=== PATIENT | female | born 1980 | race Caucasian/White ===

== ENCOUNTER 2020-07-19 | Outpatient (REF) | payer OTHER, SELFPAY | END 2020-07-19 00:01 | disposition home or self-care (01) | LOC: CF | PROVIDERS: Visit Provider Physician Assistant | DX: R10.9 Unspecified abdominal pain (principal) | CPT/HCPCS: 87338 ==

== ENCOUNTER 2020-07-30 12:49 | Outpatient (REF) | payer OTHER, SELFPAY ==
--- NOTE | 2020-07-30 12:53 | XR_ITS ---
EXAMINATION: XR CHEST CLINICAL INFORMATION: Chest pain COMPARISON: Chest radiograph 06/28/2020 TECHNIQUE: 2 views of the chest were obtained. FINDINGS: The lungs are clear. There is no pneumothorax, pleural reaction, airspace consolidation, or groundglass opacity. The costophrenic sulci are clear. The heart is normal in size. The hilar and mediastinal contours and bony structures are unremarkable. IMPRESSION: Lungs clear.
== END 2020-07-30 12:50 | disposition home or self-care (01) ==
LOC: HO.HMGCX 12:49
PROVIDERS: Visit Provider Hospitalist
DX: R07.89 Other chest pain (principal)
CPT/HCPCS: 71046

== ENCOUNTER 2020-08-13 11:22 | Outpatient (REF) | payer OTHER, SELFPAY ==
[2020-08-14 14:01] LABS: H Pylori Breath Test NOT DETECTED (NOT DETECTED)
== END 2020-08-13 11:23 | disposition home or self-care (01) ==
LOC: HO.LNP 11:22
PROVIDERS: PCP Internal Medicine; Visit Provider Physician Assistant
DX: A04.8 Other specified bacterial intestinal infections (principal)
CPT/HCPCS: 83013

== ENCOUNTER → 2020-11-05 12:01 | Outpatient (BNVA) | payer OTHER, SELFPAY | PROVIDERS: PCP Internal Medicine; Visit Provider Physician Assistant | DX: K21.9 Gastro-esophageal reflux disease without esophagitis (principal) | CPT/HCPCS: 99212 ==

== ENCOUNTER 2020-11-20 06:41 | Day surgery (SDC) | payer OTHER, SELFPAY ==
[2020-11-14 11:15] VITALS: BMI 27.5
--- NOTE | 2020-11-19 08:39 | HO.ANESPROP2 ---
Documented by User: Nettie Hoyt 11/19/20 08:41 HPI - Anesthesia Eval Consult details Narrative: 40yo F for Upper Endoscopy [facility] Active Problems Active Problems: All Active Problems (Updated 11/05/20 @ 13:28 by Lina Root PA-C) Chest wall pain (Acute) Cervical radiculopathy (Acute) H. pylori infection (Acute) Acid reflux (Acute) Past Medical History Medical History Acid reflux Family History Family History Father Digestive disorder Mother No problems noted. Surgical History Surgical History No history of previous surgery Social History Social History Household Members: Spouse Alcohol intake: never Smoking Status: Never smoker Use of substances other than those prescribed or required for medical reasons: No Advance Directives: No Advance Directives Information Provided: No Advance Directives on File: No Current occupational status: other Meds Allergies Allergy/AdvReac Type Severity Reaction Status Date / Time No Known Allergies Allergy Verified 07/30/20 12:38 Home Medications Medication Instructions Recorded Confirmed Type famotidine 20 mg tablet 20 mg PO BID 07/30/20 07/30/20 History lactulose 10 gram/15 mL oral ml PO 07/30/20 07/30/20 History solution Exam Exam Date and Time: November 19, 2020 0839 Height,Weight and Vital Signs: Height 5 ft 5 in Weight 75 kg Assessment and Plan Assessment Anesthesia Assessment: Chart Reviewed Documented by User: Dior Zamora 11/20/20 07:20 [facility] Past Medical History Medical History Acid reflux Family History Family History Father Digestive disorder Mother No problems noted. Surgical History Surgical History No history of previous surgery Social History Social History Household Members: Spouse Alcohol intake: never Smoking Status: Never smoker Use of substances other than those prescribed or required for medical reasons: No Advance Directives: No Advance Directives Information Provided: No Advance Directives on File: No Current occupational status: other Meds Allergies Allergy/AdvReac Type Severity Reaction Status Date / Time No Known Allergies Allergy Verified 07/30/20 12:38 Home Medications Medication Instructions Recorded Confirmed Type famotidine 20 mg tablet 20 mg PO BID 07/30/20 07/30/20 History lactulose 10 gram/15 mL oral ml PO 07/30/20 07/30/20 History solution Exam Airway Mallampati Class: II TM Dist: >3cm Neck ROM: Full
--- NOTE | 2020-11-20 | ECG_ITS ---
Test Reason : CP Blood Pressure : / mmHG Vent. Rate : 071 BPM Atrial Rate : 071 BPM P-R Int : 126 ms QRS Dur : 090 ms QT Int : 402 ms P-R-T Axes : 063 054 031 degrees QTc Int : 436 ms Normal sinus rhythm Normal ECG No previous ECGs available Referred By: Melo Hays Electronically Signed By:LUCIANA THORNTON
[2020-11-20 06:48] VITALS: BP 124/67; PULSE 78; RESP 20; TEMP 36.1; O2SAT 98
[2020-11-20 07:12] LABS: UPreg QC Valid YES; Urine Pregnancy NEGATIVE (NEGATIVE)
[2020-11-20] MEDS: Lactated Ringers 1,000 ML 100 ML IVCONT (07:14)
--- NOTE | 2020-11-20 07:15 | PC.NURSE ---
DR LOUIS AND DR HANCOCK AWARE PT HAVING INTERNITTENT C/P SINCE 8PM DENIES SOB LS CLEAR PWD STS RADIATES DOWN LEFT ARM WITH INTERMITTENT NUMBNESS EKG ORDERED
--- NOTE | 2020-11-20 07:23 | MHC.SHP ---
Pre-Procedural Eval Section A The patient is an INPATIENT: No Changes since office visit: Yes Patient answered all questions; No Cold of Flu in the past 2 weeks, No New Medical Problems and No Changes in Medication The History & Physical has been completed within 30 days and I have reviewed it.: Yes Section B Chief Complaint: reflux disease Allergies: Allergies Allergy/AdvReac Type Severity Reaction Status Date / Time No Known Allergies Allergy Verified 07/30/20 12:38 Review of Systems Sugical H&P ROS: Negative: Constitution, Cardiovascular and Respiratory and Yes, Specify: Gastrointestinal (heartburn, chest pain) Exam Surgical H&P Exam: Normal: Heart, Normal: Lungs and Normal: Extremities and Significant Findings: Abdomen (mild epigastric tenderness) Plan Diagnosis/Plan: Unchanged I have reviewed the history and physical and performed a pertinent physical examination on my patient. No changes have occurred unless specified.
--- NOTE | 2020-11-20 07:23 | W.PM.OPN ---
Operative Note Operative Note Date of Service: 11/20/20 Narrative: Pre-op diagnosis: GERD, chest and epigastric pain, intermittent dysphagia Post-op diagnosis: other (GERD, hiatal hernia, gastritis, retained food in the stomach) Procedure: FLEXIBLE TRANSORAL UPPER GASTROINTESTINAL ENDOSCOPY WITH BIOPSIES Consent: Indications for the procedure and potential complications of bleeding, perforation, reaction to medications and missed diagnosis were discussed with the patient and informed consent was obtained. Instrument: Olympus GIF H 190 mid size upper endoscope Monitoring: Vital signs and clinical assessment, continuous EKG monitoring, Pulse oximetry, Carbon Dioxide monitoring and blood pressure monitoring were done throughout the procedure. Procedure: The patient was placed in the left lateral decubitis position and pre-procedure medications were administered and a bite block was placed. The endoscope was inserted into the mouth and advanced under direct vision to the third part of duodenum. A careful inspection was made as the upper endoscope was withdrawn including a retroflexed examination of the proximal stomach; Findings and interventions are described below. Findings: Larynx: Normal Esophagus: Tortuous esophagus with increased tertiary contractions without stricture or ring - biopsies were obtained from proximal esophagus to check for EOE. GE junction at 32 cms, small hiatla hernia 32 to 35 cms. No esophagitis or Cintron Stomach: A large amount of retained food in fundus and body of the stomach. Mild gastric erythema. Biopsies were obtained. Grade 3 flap valve on retroflexed examination of the cardia. Duodenum: Normal bulb and descending duodenum. Biopsies were obtained from 3rd part of the duodenum to check for celiac sprue Intervention: Biopsies as noted above Impression and Post Procedure Diagnosis: Endoscopy Findings: ESOPHAGUS: Tortuous esophagus with increased tertiary contractions without stricture or ring - biopsies were obtained from proximal esophagus to check for EOE. GE junction at 32 cms, small hiatla hernia 32 to 35 cms. No esophagitis or Cintron STOMACH: Gastritis with retained food. Plan: Await pathology results. Patient to schedule a follow-up appointment in the GI clinic with CASSIUS Jose. If biopsies are normal, consider further evaluation with a Gastric emptying study and barium swallow. Above findings were reviewed with the patient and GERD handout was given in the discharge area Surgeon: Yany Pedersen MD Anesthesia: MAC (TONY Burk) Estimated blood loss (mL): 0 Pathology: other (A. Small bowel, B. Gastric antrum, C. proximal esophagus) Condition: stable Disposition: PACU
--- NOTE | 2020-11-20 07:37 | PC.NURSE ---
DT KARISSA REVIEW EKG PT ALL SET TO PROCEED WITH PROCEDURE DENIES C/P SOB AT THIS TIME NSR ON THE MONITOR
--- NOTE | 2020-11-20 07:42 | HO.ANESPROP2 ---
[facility] Active Problems Active Problems: All Active Problems (Updated 11/05/20 @ 13:28 by Lina Root PA-C) Chest wall pain (Acute) Cervical radiculopathy (Acute) H. pylori infection (Acute) Acid reflux (Acute) Past Medical History Medical History Acid reflux Family History Family History Father Digestive disorder Mother No problems noted. Surgical History Surgical History No history of previous surgery Social History Social History Household Members: Spouse Alcohol intake: never Smoking Status: Never smoker Use of substances other than those prescribed or required for medical reasons: No Advance Directives: No Advance Directives Information Provided: No Advance Directives on File: No Current occupational status: other Meds Allergies Allergy/AdvReac Type Severity Reaction Status Date / Time No Known Allergies Allergy Verified 07/30/20 12:38 Home Medications Medication Instructions Recorded Confirmed Type famotidine 20 mg tablet 20 mg PO BID 07/30/20 07/30/20 History lactulose 10 gram/15 mL oral ml PO 07/30/20 07/30/20 History solution Exam Exam Date and Time: November 20, 2020 0742 Height,Weight and Vital Signs: Height 5 ft 5 in Weight 75 kg Last Vital Signs Temp 97 F 11/20/20 06:48 Pulse 78 11/20/20 06:48 Resp 20 11/20/20 06:48 BP 124/67 11/20/20 06:48 Pulse Ox 98 11/20/20 06:48 Pertinent Lab Results Pertinent Lab Results: Laboratory Tests 11/20/20 06:48 Urine Test NEGATIVE Airway Mallampati Class: II TM Dist: >3cm Neck ROM: Full Denture: Upper and Lower
[2020-11-20 08:12] VITALS: BP 114/65; PULSE 92; RESP 16; TEMP 36.6; O2SAT 97
[2020-11-20 08:27] VITALS: BP 119/70; PULSE 72; RESP 16; TEMP 36.6; O2SAT 99
== END 2020-11-20 09:00 | disposition home or self-care (01) ==
PROVIDERS: Nurse Practitioner; PCP Internal Medicine; Visit Provider Internal Medicine Gastroenterology
PROC: 0DJ08ZZ Inspection of Upper Intestinal Tract, Via Natural or Artificial Opening Endoscopic (ICD-10-PCS; CPT 43235; principal; 2020-11-20 07:30)
DX: K21.9 Gastro-esophageal reflux disease without esophagitis (principal); K29.70 Gastritis, unspecified, without bleeding; K22.8 Other specified diseases of esophagus; K44.9 Diaphragmatic hernia without obstruction or gangrene
CPT/HCPCS: 43239; 81025; 88305; 88342; 93005

== ENCOUNTER → 2020-12-11 14:34 | Outpatient (BNVA) | payer OTHER, SELFPAY | PROVIDERS: PCP Internal Medicine; Visit Provider Physician Assistant ==

== ENCOUNTER 2020-12-24 08:42 | Outpatient (REF) | payer OTHER, SELFPAY ==
--- NOTE | ~2020-12-24 | FL_ITS ---
EXAMINATION: FL BARIUM SWALLOW CLINICAL INFORMATION: Gastroesophageal reflux disease COMPARISON: None TECHNIQUE: Barium swallow examination is performed using fluoroscopic evaluation in addition to multiple fluoroscopic spot views. The patient is imaged both upright and prone and using both thick and thin sulfate along with effervescent granules. Barium tablet was also administered. Fluoroscopy time: 1.1 minutes DAP: 5.9 Gycm2 Images: 43 FINDINGS: The swallowing mechanism is normal. No aspiration or penetration is seen. The barium tablet passed freely into the esophagus. There is mild gastroesophageal reflux. The esophagus is otherwise normal. No mass, stricture or evidence of esophagitis is seen. FL/FL barium swallow IMPRESSION: Mild gastroesophageal reflux.
== END 2020-12-24 08:43 | disposition home or self-care (01) ==
LOC: HO.XRAY 08:42
PROVIDERS: Visit Provider Physician Assistant
DX: K21.9 Gastro-esophageal reflux disease without esophagitis (principal); K31.89 Other diseases of stomach and duodenum
CPT/HCPCS: 74220

== ENCOUNTER 2021-01-03 19:50 | Emergency (ER) | payer OTHER, SELFPAY ==
[2021-01-03 21:28] VITALS: BP 121/74; PULSE 75; RESP 16; TEMP 36.9; O2SAT 98; BMI 25.5
--- NOTE | 2021-01-03 23:34 | ED_ITS ---
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 ([id number], [place]) Mode of arrival: ambulatory History of Present Illness HPI narrative: This is a 40-year-old female with past medical history of acid reflux, H pylori, cervical radiculopathy, chest wall pain, migraine who presents with onset of nausea and nonbloody/nonbilious vomiting since this morning with neck pain that patient describes on bilateral neck base and extending cephalad across the top of her head without associated photophobia or photophobia but describes pain to bilateral upper extremities without numbness/tingling or w eakness, she denies any speech changes, denies pain with eye movement or double vision, denies any numbness in her perineal area or any bladder/fecal dysfunction. In addition, patient does describe pain into bilateral lower extremities that she describes as going over the fronts of her bilateral thighs without associated numbness/tingling. Patient states that this has happened previously approximately 2 years ago and at that time she was told that it was her migraines. Of note, she has recently undergone endoscopy. Related Data Home Medications Medication Instructions Recorded Confirmed famotidine 20 mg tablet 20 mg PO BID 07/30/20 12/11/20 lactulose 10 gram/15 mL oral ml PO 07/30/20 12/11/20 solution Previous Rx's Medication Instructions Recorded gabapentin 100 mg capsule 100 mg PO TID PRN #30 cap 07/30/20 methylprednisolone 4 mg tablet 4 mg PO .COMPLEX #18 tab 07/30/20 omeprazole 20 mg capsule,delayed 20 mg PO DAILY #30 cap 11/05/20 release Allergies Allergy/AdvReac Type Severity Reaction Status Date / Time No Known Allergies Allergy Verified 12/11/20 14:35 Review of Systems Review of Systems: Pertinent positives and negatives as stated in HPI 10 point review of systems is otherwise negative. [facility] Past Medical History Source: nursing notes reviewed Medical History Acid reflux Surgical History No history of previous surgery Family History Family History Father Digestive disorder Mother No problems noted. Social History Social History Household Members: Spouse and Children Alcohol intake: never Smoking Status: Never smoker Advance Directives: No Advance Directives Information Provided: No Current occupational status: employed and other Physical Exam Vital Signs: Vital Signs: Last Vital Signs Temp 98.5 F 01/03/21 21:28 Pulse 76 01/04/21 02:46 Resp 16 01/04/21 02:46 BP 114/42 L 01/04/21 02:46 Pulse Ox 97 01/04/21 02:46 Body Mass Index 25.5 VITAL SIGNS: Reviewed. GENERAL: Well developed, well nourished, in no acute distress. HEAD: Normocephalic/atraumatic, EYES: PERRLA, EOMI intact without pain, no nystagmus NOSE: Nares patent bilateral OROPHARYNX: no oral lesions noted, posterior pharynx clear NECK: Supple, no adenopathy, bilateral trapezius discomfort on palpation, no discomfort on flexion of neck but on extension patient reports discomfort LUNGS: Normal breath sounds. No adventitious sounds or accessory muscle use. SpO2<98> CARDIOVASCULAR: Regular rate and rhythm without noted murmurs ABDOMEN: Soft, non-tender, non-distended with bowel sounds. SKIN: Inspection of the skin reveals no rashes NEUROLOGIC: Alert and oriented x 4. Strength and sensation to light touch were grossly intact x 4, cranial nerves 2-12 are grossly intact, there is no facial asymmetry, cerebellar testing is intact, there is no saddle anesthesia. Course Course Course Narrative: 40-year-old female with history and clinical presentation suggestive of possible migraine associated symptoms and low clinical suspicion for meningitis or cauda equina. Neurologic exam is benign and during the in terview process with the labor gang supervisor patient is noted to move freely without noted wincing or difficulty when shifting from side to side or changing position and is noted to be supporting herself without difficulty on her elbow while lying on her side. Will evaluate for possible infectious, anemia, electrolyte, or inflammatory processes. Review of all investigations and re-evaluated without acute findings, most notably ESR and CRP are both within normal limits. Patient also reports improvement in her symptoms with combination analgesics and lidocaine patch. She was discharged in stable condition with instructions to follow-up with her physicians by calling their office is in the morning and to continue taking a combination of the medications that we provided this evening. Medical Decision Making Lab Data Result diagrams: 01/03/21 23:37 01/03/21 23:37 Labs: Lab Results 01/03/21 01/03/21 01/03/21 Range/Units 23:37 23:37 23:37 WBC 12.0 H (4.8-10.8) X10*3/uL RBC 4.10 L (4.20-5.50) X10*6/uL Hgb 13.1 (12.0-16.0) g/dl Hct 38.1 (37-47) % MCV 92.9 (80-98) fL MCH 32.0 (27.0-33.0) pg MCHC 34.4 (31.0-35.0) g/dl RDW 12.4 (11.0-16.0) % Plt Count 183 (160-400) X10*3/uL MPV 11.9 (9.4-12.3) fL Immature Gran % (Auto) 0.3 (0.0-0.4) % Neut % (Auto) 86.3 H (45-73) % Lymph % (Auto) 10.7 L (20-40) % Meriwether % (Auto) 2.4 (2-11) % Eos % (Auto) 0.0 (0-4) % Baso % (Auto) 0.3 (0-2) % Lymph # (Auto) 1.3 (1.2-4.9) X10*3/uL Meriwether # (Auto) 0.3 (0.1-1.2) X10*3/uL Eos # (Auto) 0.0 (0.0-0.4) X10*3/uL Baso # (Auto) 0.0 (0.0-0.2) X10*3/uL Abs Immat Gran (auto) 0.04 H (0.00-0.03) X10*3/uL Absolute Neuts (auto) 10.3 H (2.0-8.3) X10*3/uL Absolute Nucleated RBC 0.000 (0.0-0.012) X10*3/uL Nucleated RBC % (auto) 0.0 (0.0-0.2) /100WBC ESR 4 (0-20) MM/HR PT (10.8-13.0) SEC INR (0.9-1.1) Sodium 142 (135-145) mmol/L Potassium 4.0 (3.3-5.1) mmol/L Chloride 110 H (96-108) mmol/L Carbon Dioxide 20 L (22-29) mmol/L Anion Gap 16 (12-20) BUN 6 L (9-16) mg/dL Creatinine 0.68 (0.5-1.4) mg/dL Estim Creat Clear Calc 113.2 Estimated GFR > 60 Random Glucose 97 (60-115) mg/dL Calcium 8.8 (8.4-10.2) mg/dL Total Bilirubin 1.0 (0.0-1.0) mg/dL AST 13 (5-31) U/L ALT 10 (0-31) U/L Alkaline Phosphatase 54 (39-117) U/L C-Reactive Protein 0.10 (< or = 0.50) mg/dL Total Protein 6.8 (6.5-8.0) g/dL Albumin 4.2 (3.5-5.0) g/dL Urine Color Urine Appearance Urine pH (5.0-8.0) Ur Specific Bryant (1.005-1.025) Urine Protein (NEG-TRACE) MG/DL Urine Glucose (UA) (NEG) MG/DL Urine Ketones (NEG) MG/DL Urine Blood (NEG) Urine Nitrite (NEG) Ur Leukocyte Esterase (NEG) Urine Test (NEGATIVE) 01/03/21 01/04/21 01/04/21 Range/Units 23:37 02:41 02:41 WBC (4.8-10.8) X10*3/uL RBC (4.20-5.50) X10*6/uL Hgb (12.0-16.0) g/dl Hct (37-47) % MCV (80-98) fL MCH (27.0-33.0) pg MCHC (31.0-35.0) g/dl RDW (11.0-16.0) % Plt Count (160-400) X10*3/uL MPV (9.4-12.3) fL Immature Gran % (Auto) (0.0-0.4) % Neut % (Auto) (45-73) % Lymph % (Auto) (20-40) % Meriwether % (Auto) (2-11) % Eos % (Auto) (0-4) % Baso % (Auto) (0-2) % Lymph # (Auto) (1.2-4.9) X10*3/uL Meriwether # (Auto) (0.1-1.2) X10*3/uL Eos # (Auto) (0.0-0.4) X10*3/uL Baso # (Auto) (0.0-0.2) X10*3/uL Abs Immat Gran (auto) (0.00-0.03) X10*3/uL Absolute Neuts (auto) (2.0-8.3) X10*3/uL Absolute Nucleated RBC (0.0-0.012) X10*3/uL Nucleated RBC % (auto) (0.0-0.2) /100WBC ESR (0-20) MM/HR PT 12.8 (10.8-13.0) SEC INR 1.1 (0.9-1.1) Sodium (135-145) mmol/L Potassium (3.3-5.1) mmol/L Chloride (96-108) mmol/L Carbon Dioxide (22-29) mmol/L Anion Gap (12-20) BUN (9-16) mg/dL Creatinine (0.5-1.4) mg/dL Estim Creat Clear Calc Estimated GFR Random Glucose (60-115) mg/dL Calcium (8.4-10.2) mg/dL Total Bilirubin (0.0-1.0) mg/dL AST (5-31) U/L ALT (0-31) U/L Alkaline Phosphatase (39-117) U/L C-Reactive Protein (< or = 0.50) mg/dL Total Protein (6.5-8.0) g/dL Albumin (3.5-5.0) g/dL Urine Color DARK YELLOW Urine Appearance CLEAR Urine pH 6.0 (5.0-8.0) Ur Specific Bryant >= 1.030 H (1.005-1.025) Urine Protein NEG (NEG-TRACE) MG/DL Urine Glucose (UA) NEG (NEG) MG/DL Urine Ketones 40 (NEG) MG/DL Urine Blood NEG (NEG) Urine Nitrite NEG (NEG) Ur Leukocyte Esterase NEG (NEG) Urine Test NEGATIVE (NEGATIVE) Discharge Plan Discharge Additional Instructions: 1. Tylenol 1000 mg, orally, every 6 hours as needed for pain control/headache. 2. Ibuprofen 400 mg, orally with milk or food, every 6 hours as needed for pain control/headache. 3. Recommend lidocaine patch, these are available in every [facility], and should be apply to area maximal pain as directed on the outside packaging. 4. Please follow-up with your primary care provider for re-evaluation. Do not hesitate to return to this emergency department should you develop acute worsening of your symptoms. Prescriptions: No Action famotidine 20 mg tablet 20 mg PO BID RF: 0 lactulose 10 gram/15 mL solution PO RF: 0 methylprednisolone 4 mg tablet 4 mg PO .COMPLEX Qty: 18 RF: 0 gabapentin 100 mg capsule 100 mg PO TID PRN (Reason: cervical radiculopathy) Qty: 30 RF: 0 omeprazole 20 mg capsule,delayed release(DR/EC) 20 mg PO DAILY Qty: 30 RF: 5 Referrals: Katie Keenan MD [Primary Care Provider] - 2 days (Re-evaluation outpatient management for cervical radiculopathy and migraines.)
[2021-01-03 23:43] LABS: Basophils Percent Auto 0.3 % (0-2); Hematocrit 38.1 % (37-47); Hemoglobin 13.1 g/dl (12.0-16.0); Imm Gran Abs Auto 0.04 X10*3/uL (0.00-0.03); Imm Gran Pct Auto 0.3 % (0.0-0.4); Lymphocytes Absolute Auto 1.3 X10*3/uL (1.2-4.9); Lymphocytes Percent Auto 10.7 % (20-40); MANUAL DIFF FLAG NO; Mean Corpuscular HGB Conc 34.4 g/dl (31.0-35.0); Mean Corpuscular Volume 92.9 fL (80-98); Mean Platelet Volume 11.9 fL (9.4-12.3); Monocytes Absolute Auto 0.3 X10*3/uL (0.1-1.2); Monocytes Percent Auto 2.4 % (2-11); Neutrophils Absolute Auto 10.3 X10*3/uL (2.0-8.3); Neutrophils Percent Auto 86.3 % (45-73); Platelet Count 183 X10*3/uL (160-400); Red Cell Distribution Width 12.4 % (11.0-16.0)
[2021-01-03] MEDS: Acetaminophen 325 MG TABLET 975 MG PO (23:45)
[2021-01-03] MEDS: Lidocaine 4 % Patch ADH..PATCH 1 PATCH TRANSDERMA (23:45)
[2021-01-03] MEDS: Ketorolac Tromethamine 15 MG/ML VIAL IVPUSH (23:45)
[2021-01-03] MEDS: ondansetron HCL 4 MG/2 ML VIAL IVPUSH (23:45)
[2021-01-03 23:52] LABS: INTERNATIONAL NORM RATIO 1.1 (0.9-1.1); Prothrombin Time 12.8 SEC (10.8-13.0)
--- NOTE | 2021-01-03 23:58 | PC.NURSE ---
PT MEDICATED PER MAR, BLOOD SAMPLES SENT TO LAB, AWAITING RESULTS AND IMPROVEMENT IN SYMPTOMS. PT AWARE OF PLAN OF CARE.
[2021-01-04 00:10] LABS: Alanine Aminotransferase 10 U/L (0-31); Albumin Level 4.2 g/dL (3.5-5.0); Alkaline Phosphatase 54 U/L (39-117); Anion Gap 16 (12-20); Aspartate Amino Transferase 13 U/L (5-31); Blood Urea Nitrogen 6 mg/dL (9-16); Calcium 8.8 mg/dL (8.4-10.2); Carbon Dioxide 20 mmol/L (22-29); Chloride 110 mmol/L (96-108); Creatinine Clr Calc Pharmacy 113.2; Estimated Glomerular Filt Rate > 60; Glucose Random 97 mg/dL (60-115); Sodium 142 mmol/L (135-145); Total Protein 6.8 g/dL (6.5-8.0)
--- NOTE | 2021-01-04 01:24 | PC.NURSE ---
PT REPORTS SOME RELIEF FROM PREVIOUSLY ADMINISTERED MEDS. NECK PAIN PERSISTS 02/18. PT REQUESTING FOOD- PO CHALLENGE INITIATED. AWAITING RESULTS AND MD REEVAL. AWARE OF PLAN OF CARE.
[2021-01-04 01:27] LABS: Erythrocyte Sedimentation Rate 4 MM/HR (0-20)
[2021-01-04] MEDS: 0.9 % Sodium Chloride 1,000 ML 999 ML IV (01:48)
[2021-01-04] MEDS: Cyclobenzaprine HCl 5 MG TABLET PO (01:48)
[2021-01-04 02:46] VITALS: BP 114/42; PULSE 76; RESP 16; O2SAT 97
--- NOTE | 2021-01-04 02:46 | PC.NURSE ---
pt reports improved pain level- 10. awaiting urine results and pending dc home. vss. tolerating po fluids and food without n/v.
[2021-01-04 02:49] LABS: Glucose Urine UA NEG (NEG); Leukocyte Esterase Urine NEG (NEG); Nitrite Urine NEG (NEG); Specific Gravity - Urine >= 1.030 (1.005-1.025); Urine Blood NEG (NEG); Urine Ketones 40 MG/DL (NEG); Urine Protein NEG (NEG-TRACE)
[2021-01-04 02:51] LABS: Appearance Urine CLEAR; Color Urine DARK YELLOW
[2021-01-04 02:52] LABS: UPreg QC Valid YES; Urine Pregnancy NEGATIVE (NEGATIVE)
== END 2021-01-04 03:36 | disposition home or self-care (01) ==
PROVIDERS: Emergency Provider Student in an Organized Health Care Education/Training Program; PCP Internal Medicine
DX: M54.12 Radiculopathy, cervical region (principal); R51.9 Headache, unspecified
CPT/HCPCS: 36415; 80053; 81003; 81025; 85025; 85610; 85652; 86140; 96361; 96374; 96375; 99284; J1885; J2405

== ENCOUNTER → 2021-02-04 08:16 | Outpatient (REF) | payer OTHER, SELFPAY ==
--- NOTE | ~2021-02-04 | NM_ITS ---
EXAMINATION: NM RADIONUCLIDE SOLID FOOD GASTRIC EMPTYING 4-HOUR STUDY CLINICAL INFORMATION: Gastroesophageal reflux disease. COMPARISON: None. TECHNIQUE: A standard meal consisting of 4 oz of Egg Beaters brand tagged with 0.7 microcuries Tc-99m Sulfur Colloid, 8 oz water and 2 slices of toast with jelly was administered orally to the patient. Images were obtained using a dual head gamma camera in the anterior and posterior projections over of the stomach immediately post ingestion and at hourly intervals up to 4 hours post ingestion. The anterior and posterior counts at each time interval were averaged using the geometric mean and expressed as percentage of the immediate post ingestion counts. FINDINGS: There is good visualization of activity in the stomach immediately post ingestion. As the study progresses, there is good clearance of activity from the stomach and visualization of progressively increasing small bowel activity. By the end of the study, there is almost no retention noted in the stomach. Retention in the stomach at each time interval was: 1 hour 72% (normal 37%-90%) 2 hours 47% (normal 30%-60%) 3 hours 21% 4 hours -1% (normal 0%-10%) NM/NM gastric emptying study IMPRESSION: Normal 4-hour solid food gastric emptying study.
== END ==
LOC: HO.NUCMED 08:16
PROVIDERS: PCP Internal Medicine; Visit Provider Physician Assistant
DX: K31.89 Other diseases of stomach and duodenum (principal)
CPT/HCPCS: 78264; A9541

== ENCOUNTER → 2021-02-12 11:49 | Outpatient (BNVA) | payer OTHER, SELFPAY | PROVIDERS: PCP Internal Medicine; Visit Provider Physician Assistant ==

== ENCOUNTER 2021-11-28 14:29 | Outpatient (REF) | payer OTHER, SELFPAY ==
--- NOTE | ~2021-11-28 | XR_ITS ---
EXAMINATION: XR CERVICAL SPINE CLINICAL INFORMATION: Radiculopathy COMPARISON: None TECHNIQUE: 3 views of the cervical spine were obtained. FINDINGS: There is mild straightening of cervical lordosis. There is loss of C5-C6 disc height with mild ventral and dorsal spurring. Rest the disc heights, vertebral heights and alignment is normal. No visible acute fracture or dislocation seen. The prevertebral soft tissues are normal. Incidental note is made of C7 cervical ribs. XR/XR cervical spine 3V IMPRESSION: Mild degenerative disc changes C3 C5 C6 disc level with ventral and posterior spondylosis.
== END 2021-11-28 14:30 | disposition home or self-care (01) ==
LOC: HO.HMGCX 14:29
PROVIDERS: Visit Provider Internal Medicine
DX: M54.12 Radiculopathy, cervical region (principal)
CPT/HCPCS: 72040

== ENCOUNTER 2021-12-02 10:18 | Outpatient (REF) | payer OTHER, SELFPAY ==
[2021-12-02 11:18] LABS: Hematocrit 39.4 % (37.0-47.0); Hemoglobin 13.2 g/dl (12.0-16.0); Mean Corpuscular HGB Conc 33.5 g/dl (31.0-35.0); Mean Corpuscular Hemoglobin 31.5 pg (27.0-33.0); Mean Platelet Volume 12.1 fL (9.4-12.3); Platelet Count 193 X10*3/uL (160-400); Red Blood Count 4.19 X10*6/uL (4.20-5.50); Red Cell Distribution Width 12.6 % (11.0-16.0)
[2021-12-02 11:46] LABS: Alanine Aminotransferase 7 U/L (0-31); Albumin Level 4.2 g/dL (3.5-5.0); Alkaline Phosphatase 59 U/L (39-117); Anion Gap 10 (12-20); Aspartate Amino Transferase 13 U/L (5-31); Bilirubin Total 0.8 mg/dL (0.0-1.0); Blood Urea Nitrogen 8 mg/dL (9-16); Carbon Dioxide 23 mmol/L (22-29); Chloride 108 mmol/L (96-108); Cholesterol 194 mg/dL; Estimated Glomerular Filt Rate > 60; Glucose Fasting 91 mg/dL (60-99); HDL Cholesterol 51 mg/dL; LDL Cholesterol Calculated 122 mg/dl; Potassium 4.2 mmol/L (3.3-5.1); Sodium 137 mmol/L (135-145); Total Protein 6.9 g/dL (6.5-8.0); Triglycerides 106 mg/dL
[2021-12-02 11:59] LABS: Vitamin D 25-OH Total 18.3 ng/mL (>30)
[2021-12-02 12:27] LABS: Folate 15.8 ng/mL (> or = 4.0); Vitamin B12 324 pg/mL (200-900)
== END 2021-12-02 10:19 | disposition home or self-care (01) ==
LOC: HO.HMGCLDS 10:18
PROVIDERS: Visit Provider Internal Medicine
DX: Z00.00 Encounter for general adult medical examination without abnormal findings (principal); Z13.220 Encounter for screening for lipoid disorders
CPT/HCPCS: 36415; 80053; 80061; 82306; 82607; 82746; 85027

== ENCOUNTER 2022-01-07 13:03 | Outpatient (REF) | payer OTHER, SELFPAY ==
--- NOTE | ~2022-01-07 | MM_ITS ---
EXAMINATION: MM SCREENING DIGITAL BREAST TOMOSYNTHESIS, BILATERAL CLINICAL INFORMATION: Screening. Asymptomatic. No prior breast imaging. Age 41. The lifetime risk of breast cancer based on the Tyrer-Cuzick Model is 15%. COMPARISON: None (current study represents initial baseline exam). TECHNIQUE: Digital breast tomosynthesis is performed in both the craniocaudal and mediolateral oblique views along with computer-aided detection (CAD). Synthesized 2D images are generated from the tomosynthesis. FINDINGS: The breasts are heterogeneously dense, which may obscure small masses (ACR BI-RADS breast composition Category c). Breast tissue composition borders on average fibroglandular. There are no significant masses, abnormal calcifications, or other abnormalities. The axilla and skin contours are unremarkable. MM/MM tomosynthesis screening BI IMPRESSION: No mammographic evidence of malignancy. ASSESSMENT: BI-RADS 1: Negative RECOMMENDATION: Routine annual mammography screening. This patient's information was entered into a reminder system with a target due date for their next mammogram.
== END 2022-01-07 13:04 | disposition home or self-care (01) ==
LOC: HO.MAMMO 13:03
PROVIDERS: Visit Provider Internal Medicine
DX: Z12.31 Encounter for screening mammogram for malignant neoplasm of breast (principal)
CPT/HCPCS: 77063; 77067

== ENCOUNTER → 2022-02-03 10:43 | Outpatient (BNVA) | payer OTHER, SELFPAY | PROVIDERS: PCP Internal Medicine; Visit Provider Advanced Practice Midwife | DX: Z13.89 Encounter for screening for other disorder (principal) ==

== ENCOUNTER 2022-03-05 13:18 | Outpatient (REF) | payer OTHER, SELFPAY ==
[2022-03-06 11:16] LABS: BV Int Neg Control Negative (Negative); BV Int Pos Control Positive (Positive)
[2022-03-06 13:39] LABS: CT PCR NOT DETECTED (Not Detect.); NG PCR NOT DETECTED (Not Detect.)
[2022-03-11 11:51] LABS: HPV mRNA E6/E7 rflx Not Detected (Not Detected)
== END 2022-03-05 13:19 | disposition home or self-care (01) ==
LOC: HO.LAB 13:18
PROVIDERS: PCP Internal Medicine; Visit Provider Advanced Practice Midwife
DX: Z01.419 Encounter for gynecological examination (general) (routine) without abnormal findings (principal); Z11.51 Encounter for screening for human papillomavirus (HPV); R39.89 Other symptoms and signs involving the genitourinary system; Z97.5 Presence of (intrauterine) contraceptive device
CPT/HCPCS: 87480; 87491; 87510; 87591; 87624; 87660; 88142

== ENCOUNTER 2022-03-20 20:00 | Emergency (ER) | payer OTHER, SELFPAY ==
--- NOTE | ~2022-03-20 | XR_ITS ---
EXAMINATION: XR PORTABLE CHEST CLINICAL INFORMATION: Rule out pneumonia. COMPARISON: 07/30/2020 TECHNIQUE: AP portable upright view of the chest FINDINGS: Lungs are clear. No consolidation, pneumothorax, or pleural effusion. Cardiac and mediastinal contours are normal. Pulmonary vasculature is unremarkable. Osseous structures are unremarkable. XR/XR chest 1V IMPRESSION: No acute cardiopulmonary findings
[2022-03-20 20:18] VITALS: BP 129/77; PULSE 73; RESP 18; TEMP 36.7; O2SAT 98; BMI 24.3
[2022-03-20 20:38] LABS: MANUAL DIFF FLAG NO
[2022-03-20 20:50] LABS: Basophils Percent Auto 0.6 % (0-2); Eosinophils Absolute Auto 0.1 X10*3/uL (0.0-0.4); Eosinophils Percent Auto 1.1 % (0-4); Hematocrit 40.8 % (37.0-47.0); Hemoglobin 13.7 g/dl (12.0-16.0); Lymphocytes Percent Auto 38.1 % (20-40); Mean Corpuscular HGB Conc 33.6 g/dl (31.0-35.0); Mean Corpuscular Hemoglobin 31.2 pg (27.0-33.0); Mean Corpuscular Volume 92.9 fL (80.0-98.0); Mean Platelet Volume 11.6 fL (9.4-12.3); Monocytes Absolute Auto 0.6 X10*3/uL (0.1-1.2); Monocytes Percent Auto 11.2 % (2-11); Neutrophils Absolute Auto 2.6 x10*3/uL (2.0-8.3); Platelet Count 187 X10*3/uL (160-400); Red Blood Count 4.39 X10*6/uL (4.20-5.50); Red Cell Distribution Width 12.3 % (11.0-16.0); White Blood Count 5.4 X10*3/uL (4.8-10.8)
[2022-03-20 20:53] LABS: Anion Gap 12 (12-20); Blood Urea Nitrogen 8 mg/dL (9-16); Calcium 9.1 mg/dL (8.4-10.2); Carbon Dioxide 24 mmol/L (22-29); Chloride 106 mmol/L (96-108); Creatinine Clr Calc Pharmacy 93.3; Estimated Glomerular Filt Rate > 60; Glucose Random 111 mg/dL (60-115); Potassium 3.9 mmol/L (3.3-5.1); Sodium 138 mmol/L (135-145)
[2022-03-20 20:59] LABS: COVID-19 Test Negative (Negative); IDNOW Serial# 55D5AD1C
[2022-03-20 21:00] LABS: IDNOW Serial# 16C4AD1C; Influenza A Negative (Negative); Influenza B2 Negative (Negative)
[2022-03-20 23:58] VITALS: BP 119/74; PULSE 66; RESP 18; TEMP 36.9; O2SAT 98
--- NOTE | 2022-03-21 00:28 | ED.GENADULT ---
HPI - General Adult General Chief complaint: Headache Stated complaint: headaches/neckpain/coughing Time Seen by Provider: 03/21/22 00:12 Source: patient and family Mode of arrival: ambulatory Limitations: language barrier (Zimbabwean speaking) History of Present Illness HPI narrative: Patient comes to the emergency room complaining of posterior headache, bilateral neck pain, nasal congestion, bilateral ear pain and itching, cough, occasional nausea. Patient is Zimbabwean speaking. Patient requested that her 's interprets. Patient states she had several negative COVID tests. Patient denies chest pain, shortness of breath, no vomiting. Related Data Previous Rx's Medication Instructions Recorded sumatriptan 20 mg/actuation nasal 20 mg intranasal Q2H PRN migraine 11/28/21 spray (Imitrex) headache #6 ea rizatriptan 10 mg disintegrating See Rx Instructions PO .COMPLEX 01/20/22 tablet (Maxalt-RAILROAD CRANE OPERATOR) #14 tabs baclofen 10 mg tablet 10 mg PO BID #7 tabs 03/21/22 fexofenadine 180 mg tablet 180 mg PO DAILY #7 tabs 03/21/22 (Brianna Allergy) fluticasone propionate 50 1 spray intranasal BID #16 grams 03/21/22 mcg/actuation nasal spray,suspension (Flonase Allergy Relief) ketorolac 10 mg tablet 10 mg PO TID PRN pain 5 days #6 03/21/22 tabs ondansetron HCl 4 mg tablet 4 mg PO Q8H PRN nausea and 03/21/22 vomiting #7 tabs Allergies Allergy/AdvReac Type Severity Reaction Status Date / Time No Known Allergies Allergy Verified 03/20/22 20:18 Review of Systems Review of Systems: Constitutional : No Weight loss, No Fever, No Chills, No Night Sweats, playing fatigue and generalized malaise ENT/Mouth : No Hearing loss, complaining of bilateral ear pain and itching, no discharge, complaining of nasal congestion, complaining of sinus pain, no hoarseness, no cervical, no rhinorrhea, no difficulty swallowing Eyes: No Eye Pain, No Swelling, No Redness, No Foreign Body, No Discharge, No Vision Changes Cardiovascular : No Chest Pain, No SOB, No Dyspnea on Exertion, No Orthopnea, No Edema, No Palpitations Respiratory : No Cough, No Sputum, No Wheezing, No Smoke Exposure, No Dyspnea Gastrointestinal : Intermittent Nausea, No Vomiting, No Diarrhea, No Constipation, No abdominal Pain, No Hematochezia, No Melena Genitourinary : no irregular bleeding, No Dysuria, No Urinary Frequency, No Hematuria, No Urinary Incontinence, No Urgency, No Flank Pain, No Urinary Flow Changes, No Hesitancy Musculoskeletal : No joint pain, No Myalgias, No Joint Swelling Skin : No Skin Lesions, No rash Neuro : No Weakness, No Numbness, No Paresthesias, No Loss of Consciousness, No Dizziness, No Headache Psych : No Anxiety/Panic, No Depression, No SI/HI/AH/VH, No Social Issues, Heme/Lymph: No Bruising, No Bleeding,No Lymphadenopathy Endocrine : No Polyuria, No Polydipsia, No Temperature Intolerance [facility] Past Medical History Medical History (Updated 03/21/22 @ 00:37 by Spring Bryson MD) Acid reflux Glaucoma Migraine Postnasal drip Visit for pelvic exam Vitamin D deficiency Surgical History No history of previous surgery Family History Family History Father Digestive disorder Mother No problems noted. Social History Social History Household Members: Spouse and Children Alcohol intake: never Patient Tobacco Use Status: Never used Tobacco Advance Directives: No Advance Directives Information Provided: Yes Current occupational status: employed and other Physical Exam ED Vital Signs: Vital Signs - 24 hr 03/20/22 20:18 03/20/22 23:58 Temperature 98.1 F 98.4 F Pulse Rate 73 66 Respiratory Rate 18 18 Blood Pressure 129/77 119/74 Pulse Oximetry 98 98 Oxygen Delivery Method Room Air Room Air BMI result Body Mass Index 24.3 Const Other: Appearance: Alert. Oriented X3. No acute distress. Eyes: Pupils equal, round and reactive to light. ENT: Pharynx normal. Oropharynx no exudates, no abscesses, normal tone, no vesicles, bilateral ear canals and tympanic membranes within normal limits, not erythematous Neck: Normal inspection. Neck supple. No lymph nodes noted. No crepitus, normal range of motion with flexion and extension, mild pain to discomfort and palpation over bilateral sides of the C-spine, no C-spine tenderness CVS: Normal heart rate and rhythm. Pulses normal. Normal S1 and S2 Respiratory: No respiratory distress. Breath sounds normal. No Wheezing. No rales Abdomen: Soft and nontender. No rigidity. No distention. Skin: Skin warm and dry. Normal skin color. Normal skin turgor. Extremities: No lower extremity edema. No Lacerations. No Rash Neuro: Oriented X 3. No motor deficit. No sensory deficit. Moving all extremities. No slurred speech. CN 2 through 12 grossly intact Psych: calm, cooperative, normal affect Course Course Course Narrative: I discussed with the patient that her labs are unremarkable, COVID and flu test negative. Urinalysis is negative Chest x-ray is pending. Patient was given IM Toradol and p.o. Valium. Chest x-ray negative Medical Decision Making Lab Data Result diagrams: 03/20/22 20:25 03/20/22 20:25 Labs: Lab Results 03/20/22 03/20/22 03/20/22 Range/Units 20:25 20:25 20:25 WBC 5.4 (4.8-10.8) X10*3/uL RBC 4.39 (4.20-5.50) X10*6/uL Hgb 13.7 (12.0-16.0) g/dl Hct 40.8 (37.0-47.0) % MCV 92.9 (80.0-98.0) fL MCH 31.2 (27.0-33.0) pg MCHC 33.6 (31.0-35.0) g/dl RDW 12.3 (11.0-16.0) % Plt Count 187 (160-400) X10*3/uL MPV 11.6 (9.4-12.3) fL Immature Gran % (Auto) 0.0 (0.0-0.4) % Neut % (Auto) 49.0 (45-73) % Lymph % (Auto) 38.1 (20-40) % Edmonson % (Auto) 11.2 H (2-11) % Eos % (Auto) 1.1 (0-4) % Baso % (Auto) 0.6 (0-2) % Lymph # (Auto) 2.0 (1.2-4.9) X10*3/uL Edmonson # (Auto) 0.6 (0.1-1.2) X10*3/uL Eos # (Auto) 0.1 (0.0-0.4) X10*3/uL Baso # (Auto) 0.0 (0.0-0.2) X10*3/uL Abs Immat Gran (auto) 0.00 (0.00-0.03) X10*3/uL Absolute Neuts (auto) 2.6 (2.0-8.3) x10*3/uL Absolute Nucleated RBC 0.000 (0.0-0.012) X10*3/uL Nucleated RBC % (auto) 0.0 (0.0-0.2) /100WBC Sodium (135-145) mmol/L Potassium (3.3-5.1) mmol/L Chloride (96-108) mmol/L Carbon Dioxide (22-29) mmol/L Anion Gap (12-20) BUN (9-16) mg/dL Creatinine (0.5-1.4) mg/dL Estim Creat Clear Calc Estimated GFR Random Glucose (60-115) mg/dL Calcium (8.4-10.2) mg/dL COVID-19 (NATALIE) Negative (Negative) COVID-19 Clin Com See Note Influenza Type A (SOL) Negative (Negative) Influenza Type B (SOL) Negative (Negative) Influenza A & B Note See Note 03/20/22 Range/Units 20:25 WBC (4.8-10.8) X10*3/uL RBC (4.20-5.50) X10*6/uL Hgb (12.0-16.0) g/dl Hct (37.0-47.0) % MCV (80.0-98.0) fL MCH (27.0-33.0) pg MCHC (31.0-35.0) g/dl RDW (11.0-16.0) % Plt Count (160-400) X10*3/uL MPV (9.4-12.3) fL Immature Gran % (Auto) (0.0-0.4) % Neut % (Auto) (45-73) % Lymph % (Auto) (20-40) % Edmonson % (Auto) (2-11) % Eos % (Auto) (0-4) % Baso % (Auto) (0-2) % Lymph # (Auto) (1.2-4.9) X10*3/uL Edmonson # (Auto) (0.1-1.2) X10*3/uL Eos # (Auto) (0.0-0.4) X10*3/uL Baso # (Auto) (0.0-0.2) X10*3/uL Abs Immat Gran (auto) (0.00-0.03) X10*3/uL Absolute Neuts (auto) (2.0-8.3) x10*3/uL Absolute Nucleated RBC (0.0-0.012) X10*3/uL Nucleated RBC % (auto) (0.0-0.2) /100WBC Sodium 138 (135-145) mmol/L Potassium 3.9 (3.3-5.1) mmol/L Chloride 106 (96-108) mmol/L Carbon Dioxide 24 (22-29) mmol/L Anion Gap 12 (12-20) BUN 8 L (9-16) mg/dL Creatinine 0.72 (0.5-1.4) mg/dL Estim Creat Clear Calc 93.3 Estimated GFR > 60 Random Glucose 111 (60-115) mg/dL Calcium 9.1 (8.4-10.2) mg/dL COVID-19 (NATALIE) (Negative) COVID-19 Clin Com Influenza Type A (SOL) (Negative) Influenza Type B (SOL) (Negative) Influenza A & B Note Imaging Data Chest x-ray: Radiologist's impression: FINDINGS: ?Lungs are clear. No consolidation, pneumothorax, or pleural effusion. Cardiac and mediastinal contours are normal. Pulmonary vasculature is unremarkable. Osseous structures are unremarkable. XR/XR chest 1V IMPRESSION: No acute cardiopulmonary findings Discharge Plan Discharge Clinical Impression: Acute viral syndrome Patient Disposition: Home, Self-Care Instructions: Viral Syndrome (ED) Additional Instructions: Please follow-up with your primary care physician tomorrow. If you have any worsening or new symptoms, please return to the emergency room or call 911 Prescriptions: New fexofenadine [Brianna Allergy] 180 mg tablet 180 mg PO DAILY Qty: 7 0RF fluticasone propionate [Flonase Allergy Relief] 50 mcg/actuation spray,suspension 1 spray intranasal BID Qty: 16 0RF Rx Instructions: administer into each nostril baclofen 10 mg tablet 10 mg PO BID Qty: 7 0RF ondansetron HCl 4 mg tablet 4 mg PO Q8H PRN (Reason: nausea and vomiting) Qty: 7 0RF ketorolac 10 mg tablet 10 mg PO TID PRN (Reason: pain) 5 Days Qty: 6 0RF Rx Instructions: Do not use this medication with ibuprofen/naproxen/Aleve, any NSAID, only use Tylenol if needed No Action rizatriptan [Maxalt-RAILROAD CRANE OPERATOR] 10 mg tablet,disintegrating See Rx Instructions PO .COMPLEX Qty: 14 4RF Rx Instructions: take 1 tab at onset of headache; if no relief may repeat 1 tab after at least 2 hrs; max = 3 tabs/24 hr PO sumatriptan [Imitrex] 20 mg/actuation spray,non-aerosol 20 mg intranasal Q2H PRN (Reason: migraine headache) Qty: 6 1RF Rx Instructions: administer into one nostril as a single dose; if 2nd dose needed,administer into other nostril after at least 2 hrs, NTE 2 doses (40 mg) per episode
[2022-03-21] MEDS: diazePAM 10 MG/2 ML CARTRIDGE 5 MG IM (00:54)
[2022-03-21] MEDS: Ketorolac Tromethamine 60 MG/2 ML VIAL IM (00:54)
== END 2022-03-21 02:20 | disposition home or self-care (01) ==
PROVIDERS: Emergency Provider Emergency Medicine; PCP Internal Medicine
DX: B34.9 Viral infection, unspecified (principal); Z20.822 Contact with and (suspected) exposure to COVID-19; R51.9 Headache, unspecified
CPT/HCPCS: 36415; 71045; 80048; 85025; 87502; 87635; 96372; 99283; 99284; J1885; J3360

== ENCOUNTER 2022-08-22 15:09 | Outpatient (REF) | payer OTHER, SELFPAY ==
--- NOTE | ~2022-08-22 | US_ITS ---
EXAMINATION: US THYROID CLINICAL INFORMATION: Nontoxic single thyroid nodule. COMPARISON: None TECHNIQUE: Linear transducer grayscale and color Doppler examination with attention to the region of the thyroid. FINDINGS: SIZE: Measurements of the thyroid lobes and nodules are given in sagittal, anteroposterior and transverse dimensions respectively. Right Thyroid Lobe: 5.3 x 1.5 x 1.9 cm, volume 7.9 mL. Left Thyroid Lobe: 5.6 x 1.4 x 2.2 cm, volume 9.0 mL. Isthmus: 0.3 cm in maximum AP dimension. THYROID PARENCHYMA AND NODULES: Thyroid gland has normal echotexture with exception of a few nodules. The gland has a hypervascular appearance on color Doppler images. Nodules are as follows: 1.2 x 1 x 1.2 cm solid, hypoechoic nodule with slightly lobulated border is present in the [id number] right lobe at its junction with the isthmus. Peripheral calcifications are seen. ACR TI-RADS score of 8 points, TR5. If not already performed, ultrasound-guided FNA would be recommended for this nodule. 0.6 x 0.2 x 0.5 cm predominantly cystic, smoothly marginated noncalcified nodule is present in the anterior left lower pole near its junction with the isthmus. A predominantly solid 0.7 x 0.4 x 0.7 cm, isoechoic, noncalcified nodule is present in the left lower pole. ACR TI-RADS score of 3 points, TR3. NODES: No lymphadenopathy is seen in the tissue surrounding the thyroid gland. US/US thyroid IMPRESSION: Thyroid gland has a hypervascular appearance on color Doppler imaging and there are a few nodules. A highly suspicious 1.2 cm hypoechoic nodule is present in region of junction of the right thyroid lobe and isthmus. Ultrasound-guided FNA is recommended. ACR TI-RADS RECOMMENDATIONS: * TR1 (0 point) and TR 2 (2 points): No FNA or follow up * TR3 (3 points): FNA if at least 2.5 cm maximum dimension. Otherwise, perform ultrasound follow up in 1, 3 and 5 years if at least 1.5 cm maximum dimension. * TR4 (4-6 points): FNA if at least 1.5 cm maximum dimension. Otherwise, perform ultrasound follow up in 1, 2, 3 and 5 years if at least 1 cm maximum dimension. * TR5 (more than or equal to 7 points): FNA if at least 1 cm in maximum dimension. Otherwise, perform ultrasound follow up every year for 5 years if at least 0.5 cm in maximum dimension.
== END 2022-08-22 15:10 | disposition home or self-care (01) ==
LOC: HO.US 15:09
PROVIDERS: PCP Internal Medicine; Visit Provider Internal Medicine
DX: E04.1 Nontoxic single thyroid nodule (principal)
CPT/HCPCS: 76536

== ENCOUNTER 2022-09-01 09:30 | Outpatient (REF) | payer OTHER, SELFPAY ==
[2022-09-01 13:11] LABS: Albumin Level 4.3 g/dL (3.5-5.0); Free T4 (Free Thyroxine) 0.86 ng/dL (0.71-1.85); Vitamin D 25-OH Total 24.8 ng/mL (>30)
[2022-09-02 10:56] LABS: Calcium (PTHI) 9.2 mg/dL (8.6-10.2); PTHI 73 pg/mL (16-77)
== END 2022-09-01 09:31 | disposition home or self-care (01) ==
LOC: HO.LAB 09:30
PROVIDERS: PCP Internal Medicine; Visit Provider Internal Medicine
DX: E04.2 Nontoxic multinodular goiter (principal); E55.9 Vitamin D deficiency, unspecified
CPT/HCPCS: 36415; 82040; 82306; 83970; 84439; 84443; 99202

== ENCOUNTER → 2022-10-02 12:41 | Outpatient (BNVA) | payer OTHER, SELFPAY | PROVIDERS: PCP Internal Medicine; Visit Provider Nurse Practitioner Family | DX: M54.2 Cervicalgia (principal); G43.109 Migraine with aura, not intractable, without status migrainosus | CPT/HCPCS: 99202 ==

== ENCOUNTER 2022-11-06 09:53 | Outpatient (REF) | payer OTHER, SELFPAY ==
--- NOTE | 2022-11-06 10:26 | P.BOP_ITS ---
Brief Operative Note Date of Service: 11/06/22 Pre-op diagnosis: Thyroid nodule Procedure: Patient presented for FNA biposy of a RMP 1.2 cm thyroid nodule. She was unable to tolerate the biopsy due to anxiety so procedure was aborted and will be rescheduled under conscious sedation with IR. Surgeon: Annette Reed, DO Was an Ornamental Iron Erector used for this Procedure?: No Estimated blood loss (mL): 0
== END 2022-11-06 09:54 | disposition home or self-care (01) ==
LOC: HO.US 09:53
PROVIDERS: PCP Internal Medicine; Visit Provider Internal Medicine
DX: E04.2 Nontoxic multinodular goiter (principal)
CPT/HCPCS: 76536

== ENCOUNTER 2022-11-06 17:00 | Outpatient (RCR) | payer OTHER, SELFPAY ==
--- NOTE | 2022-10-27 17:37 | MHC.PT.EP ---
[facility] [place] Office [place] Office [place] Office [address] Dilip Rodriguez [address] [phone] F: [phone] F: [phone] F: [phone] F: [phone] Physical Therapy Plan of Care Date of Evaluation: Date of Surgery: n/a Diagnosis: cervicalgia Assessment: Patient is a 42 year old female presenting to PT with complaints of pain in her neck. Pt reports onset of pain began about 3-4 years ago due to insidious onset. She presents today with impairments in pain, muscle tightness, posture. 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 Pt expresses buttermaker continuous churn goal of reducing pain, and is motivated to work towards this in PT. Clinical presentation today is most consistent with signs and sx associated with chronic neck pain that is likely myofascial in nature and pt will benefit from skilled PT to address the following problems and impairments noted upon evaluation: pain, muscle tightness, posture. These problems limit the patient with the following functional activities: ADLs. The prescribed treatment plan of care is medically necessary. Co-morbidities of migraine were identified and taken into considerations of plan of care. Pt was educated on HEP, role of PT, prognosis, POC. Frequency and Duration: The patient will be seen 1 x week x 4 weeks Short Term Goals: Pt will demonstrate improved postural awareness by sitting with biomechanically correct posture without cues throughout session to improve overall postural function in 2 weeks. Pt will demonstrate improved muscle tissue density and tightness in her UT in 2 weeks. Sales Marketing Director Goals: Pt will demonstrate improved NDI score by 10% in 4 weeks for improved functional mobility. Pt will demonstrate ability to complete ADLs with min to no pain in 4 weeks for return to PLOF. Treatment Plan: Modalities to reduce pain, spasms and effusion. Manual therapy to restore motion and function. Therapeutic exercise to improve strength and flexibility. Neuromuscular re-education for posture and balance. Therapeutic activities to return to functional activities of daily living. Electronically signed by: Venice Bucio, PT, DPT, ATC Please sign and return to therapist. Thank you for your referral.
--- NOTE | 2022-11-21 07:51 | MHC.PT.DC ---
[facility] [place] Office [place] Office [place] Office [address] [phone] F: [phone] F: [phone] F: [phone] F: [phone] Physical Therapy Discharge Report Diagnosis: cervicalgia Date of Surgery: n/a Date of Evaluation: 10/27/22 Date of Discharge: 11/21/22 Treatments to Date: 2 Cancellations to Date: 0 No Shows to Date: 2 Discharge Status: Visit Non-compliance Discharge Summary: Pt has failed to comply with [facility] attendance policy and no showed 2 appointments. Pt to be d/c at this time. Electronically signed by: Venice Bucio, PT, DPT, ATC Please sign and return to therapist. Thank you for your referral.
== END 2022-11-21 07:51 | disposition home or self-care (01) ==
LOC: HO.PTCHIC 17:00
PROVIDERS: PCP Internal Medicine; Visit Provider Internal Medicine
DX: M54.2 Cervicalgia (principal)
CPT/HCPCS: 97110; 97161

== ENCOUNTER 2022-11-14 08:51 | Day surgery (SDC) | payer OTHER, SELFPAY ==
--- NOTE | ~2022-11-14 | US_ITS ---
PROCEDURE: ULTRASOUND-GUIDED RIGHT THYROID LOBE NODULE BIOPSY CLINICAL INFORMATION: Right thyroid nodule. COMPARISON: Ultrasound thyroid 08/22/2022. TECHNIQUE: Following explaining ultrasound-guided right thyroid nodule biopsy procedure, benefits and risk, a written consent was obtained. Patient was placed supine on ultrasound stretcher and preliminary ultrasound imaging was obtained through the right thyroid nodule and right lobe. An optimal site was selected along the anterior neck and marked on the skin. The marked area was cleaned and draped in usual sterile manner. 1% lidocaine was administered at the puncture site. A 25-gauge needle was then advanced from the skin into the right thyroid nodule under sterile ultrasound guidance and a 5 pass fine-needle aspiration biopsy was performed. After observing atypical thyroid cells, the biopsy was terminated. Complete hemostasis achieved at puncture site. Patient tolerated procedure extremely well. Conscious sedation was utilized during the exam and patient monitored by IR nursing and IR physician for 30 minutes. FINDINGS: On preliminary ultrasound imaging there is a hypoechoic nodule in the right lateral lobe lower pole with echogenic velasco likely calcification. Approximately 5 pass biopsy of this nodule was performed under ultrasound guidance. US/US guided fine needle asp IMPRESSION: Successful ultrasound-guided fine-needle biopsy right thyroid lobe nodule was performed.
--- NOTE | 2022-11-14 09:22 | PC.NURSE ---
patient understands and speaks some Togolese. present to interpret in Ecuadorean if needed for SSS only questions.
[2022-11-14 09:23] VITALS: BMI 22.4
[2022-11-14 09:30] LABS: UPreg QC Valid YES; Urine Pregnancy NEGATIVE (NEGATIVE)
[2022-11-14 09:42] LABS: MANUAL DIFF FLAG NO
[2022-11-14 09:47] VITALS: BP 105/54; PULSE 66; RESP 18; TEMP 36.7; O2SAT 97
[2022-11-14 09:47] LABS: Basophils Percent Auto 0.7 % (0-2); Eosinophils Absolute Auto 0.1 X10*3/uL (0.0-0.4); Hematocrit 37.2 % (37.0-47.0); Hemoglobin 12.6 g/dl (12.0-16.0); Imm Gran Abs Auto 0.01 X10*3/uL (0.00-0.03); Imm Gran Pct Auto 0.2 % (0.0-0.4); Lymphocytes Absolute Auto 1.7 X10*3/uL (1.2-4.9); Lymphocytes Percent Auto 28.9 % (20-40); Mean Corpuscular HGB Conc 33.9 g/dl (31.0-35.0); Mean Corpuscular Hemoglobin 31.3 pg (27.0-33.0); Mean Corpuscular Volume 92.5 fL (80.0-98.0); Mean Platelet Volume 11.6 fL (9.4-12.3); Monocytes Absolute Auto 0.3 X10*3/uL (0.1-1.2); Monocytes Percent Auto 5.1 % (2-11); Neutrophils Absolute Auto 3.7 x10*3/uL (2.0-8.3); Neutrophils Percent Auto 63.1 % (45-73); Platelet Count 183 X10*3/uL (160-400); Red Blood Count 4.02 X10*6/uL (4.20-5.50); Red Cell Distribution Width 12.4 % (11.0-16.0); White Blood Count 5.9 X10*3/uL (4.8-10.8)
[2022-11-14 09:55] LABS: Partial Thromboplastin Time 34.1 SEC (26.0-36.4)
[2022-11-14 11:25] VITALS: BP 116/72; PULSE 65; RESP 16; TEMP 36.3; O2SAT 97
[2022-11-14 11:40] VITALS: BP 100/57; PULSE 68; RESP 16; O2SAT 100
[2022-11-14 11:51] VITALS: BP 115/64; PULSE 67; RESP 18; O2SAT 99
[2022-11-14 12:06] VITALS: BP 101/62; PULSE 60; RESP 16; TEMP 36.5; O2SAT 99
[2022-11-14 12:21] VITALS: BP 115/71; PULSE 71; RESP 16; TEMP 36.8; O2SAT 100
== END 2022-11-14 12:45 | disposition home or self-care (01) ==
PROVIDERS: Anesthesiology; PCP Internal Medicine; Visit Provider Radiology Diagnostic Radiology
DX: E04.2 Nontoxic multinodular goiter (principal); E55.9 Vitamin D deficiency, unspecified; Z79.899 Other long term (current) drug therapy
CPT/HCPCS: 10005; 36415; 81025; 85025; 85730; 88172; 88173; 88177; 99152; 99153; J2250; J3010

== ENCOUNTER → 2022-12-08 09:30 | Outpatient (BNVA) | payer OTHER, SELFPAY | PROVIDERS: PCP Internal Medicine; Visit Provider Internal Medicine | DX: E04.2 Nontoxic multinodular goiter (principal); Z09 Encounter for follow-up examination after completed treatment for conditions other than malignant neoplasm | CPT/HCPCS: 99212 ==

== ENCOUNTER 2023-06-25 09:28 | Outpatient (REF) | payer OTHER, SELFPAY | END 2023-06-25 09:29 | disposition home or self-care (01) | LOC: HO.MAMMO 09:28 | PROVIDERS: PCP Internal Medicine; Visit Provider Internal Medicine | DX: Z12.31 Encounter for screening mammogram for malignant neoplasm of breast (principal) | CPT/HCPCS: 77063; 77067 ==

== ENCOUNTER → 2023-06-25 10:00 | Outpatient (BNV) | payer OTHER, SELFPAY | PROVIDERS: PCP Internal Medicine; Visit Provider Radiology Diagnostic Radiology | DX: Z12.31 Encounter for screening mammogram for malignant neoplasm of breast (principal) | CPT/HCPCS: 77063; 77067 ==

== ENCOUNTER 2023-09-16 10:25 | Outpatient (REF) | payer OTHER, SELFPAY ==
--- NOTE | ~2023-09-16 | US_ITS ---
EXAMINATION: US THYROID CLINICAL INFORMATION: Nontoxic multinodular goiter. COMPARISON: Ultrasound soft tissue head/neck thyroid dated 08/22/2022. TECHNIQUE: Linear transducer grayscale and color Doppler examination with attention to the region of the thyroid. FINDINGS: SIZE: Measurements of the thyroid lobes and nodules are given in sagittal, anteroposterior and transverse dimensions respectively. Right Thyroid Lobe: 5.8 x 1.9 x 2.0 cm, volume 11.5 mL. Previously 5.3 x 1.5 x 1.9 cm, volume 7.9 mL. Parenchyma: The gland echotexture is heterogeneous. Thyroid vascularity is increased. Left Thyroid Lobe: 6.1 x 1.4 x 1.9 cm, volume 8.5 mL. Previously 5.6 x 1.4 x 2.2 cm, volume 9.0 mL. Parenchyma: The gland echotexture is heterogeneous. Thyroid vascularity is increased. Isthmus: 0.3 cm in maximum AP dimension. Previously 0.3 cm. Estimated total number of nodules greater than or equal to 1 cm: 1. Poolroom Table Attendant nodules are described as follows: 1. Location: Right inferior. Size: 1.3 x 0.8 x 1.1 cm, volume 0.6 mL. Previously: 1.2 x 0.7 x 1.0 cm, volume 0.5 mL. Nodule characteristics: Composition: Solid (2). Echogenicity: Hypoechoic (2). Shape: Not taller than wide (0). Margins: Irregular (2). Echogenic Foci: Peripheral calcifications (2). ACR TI-RADS total points: 8 Previous: 8 ACR TI-RADS category: 5 Previous: 5 Significant change in size (>/= 20% in 2 dimensions and minimal increase of 2 mm or 50% or greater increase in volume): No Change in features: No Change in ACR TI-RADS risk category: No 2. Location: Left inferior. Size: 0.3 x 0.3 x 0.3 cm, volume 0.02 mL. Previously: New since the previous study. Nodule characteristics: Composition: Cystic(0). ACR TI-RADS total points: 0 ACR TI-RADS category: 1 3. Location: Left medial inferior. Size: 0.6 x 0.2 x 0.5 cm, volume 0.04 mL. Previously: 0.6 x 0.2 x 0.5 cm, volume 0.03 mL. Nodule characteristics: Composition: Cystic(0). ACR TI-RADS total points: 0 Previous: 4 ACR TI-RADS category: 1 Previous: 4 Significant change in size (>/= 20% in 2 dimensions and minimal increase of 2 mm or 50% or greater increase in volume): No Change in features: No Change in ACR TI-RADS risk category: No 4. Location: Left inferior. Size: 0.8 x 0.4 x 0.8 cm, volume 0.1 mL. Previously: 0.7 x 0.4 x 0.7 cm, volume 0.1 mL. Nodule characteristics: Composition: Solid/almost completely solid (2). Echogenicity: Isoechoic (1). Shape: Not taller than wide (0). Margins: Smooth (0). Echogenic Foci: None (0). ACR TI-RADS total points: 3 Previous: 3 ACR TI-RADS category: 3 Previous: 3 Significant change in size (>/= 20% in 2 dimensions and minimal increase of 2 mm or 50% or greater increase in volume): No Change in features: No Change in ACR TI-RADS risk category: No NODES: No lymphadenopathy is seen in the tissue surrounding the thyroid gland. US/US thyroid IMPRESSION: Enlarged heterogeneous thyroid gland with increased vascularity. Stable multinodular thyroid gland. Continued surveillance recommended with ultrasound in one year.
== END 2023-09-16 10:26 | disposition home or self-care (01) ==
LOC: HO.HMGCX 10:25
PROVIDERS: PCP Internal Medicine; Visit Provider Internal Medicine Endocrinology, Diabetes & Metabolism
DX: E04.2 Nontoxic multinodular goiter (principal)
CPT/HCPCS: 76536

== ENCOUNTER 2023-11-04 14:44 | Outpatient (AMB) | payer OTHER, SELFPAY ==
[2023-11-04 15:23] VITALS: BP 110/62; PULSE 66; TEMP 36.8; O2SAT 99; BMI 24.8
--- NOTE | 2023-11-04 15:23 | AM.OFFWIN_ITS ---
Intake Vital Signs 11/04/23 15:23 Height 5 ft 6 in Weight 153 lb 8 oz BMI 24.8 BP 110/62 Blood Pressure Location Lt brachial Position Sitting Pulse 66 Pulse Source Pulse Oximeter Temp 98.2 F Temp Source Oral Pulse Oximetry (%) 99 Oxygen Delivery Method Room Air Intake Visit Reasons: EP LT arm pain/back/Nausea/vomiting (masked) Intake Note: pt is here for c.o left arm pain, radiates to back. pt states she has nausea and vimiting for 2 days Patient Tobacco Use Status: Never used Tobacco Allergies No Known Allergies Allergy (Verified 11/07/23 20:00) Medication List - Last Reconciled 11/07/23 by Huseyin Bower MD cyclobenzaprine 10 mg PO BEDTIME gabapentin 300 mg PO BEDTIME 30 days magnesium oxide 400 mg PO DAILY 30 days meloxicam 15 mg PO DAILY rizatriptan (Maxalt-FURNACE FIRER) take 1 tab at onset of headache; if no relief may repeat 1 tab after at least 2 hrs; max = 3 tabs/24 hr PO Do you need a note to return to daycare/school/sports/work: Yes HPI EP LT arm pain/back/Nausea/vomiting (masked) HPI Details 43-year-old female presents to the [facility] for a sick visit. 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 Patient is complaining of left shoulder pain, neck pain and head aches. 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 No cough or chills [facility] Medical History Vitamin D deficiency Multinodular thyroid Vitamin D deficiency Postnasal drip Glaucoma Visit for pelvic exam Migraine Acid reflux Surgical History S/P thyroid biopsy Family History Father Digestive disorder Mother No problems noted. Social History Household Members: Spouse and Children Housing: House Alcohol intake: never Patient Tobacco Use Status: Never used Tobacco Substance Use Type: Marijuana Current occupational status: employed and other Cognitive needs: No Hearing needs: No Vision needs: No Female Reproductive History Menstrual Age of Menarche: 10 Physical Exam Vital Signs: Last Vital Signs Temp 98.2 F 11/04/23 15:23 Pulse 66 11/04/23 15:23 BP 110/62 11/04/23 15:23 Pulse Ox 99 11/04/23 15:23 Oxygen Delivery Method Room Air 11/04/23 15:23 BMI result Body Mass Index 24.8 Const General: cooperative and healthy appearing Nutritional Appearance: well nourished Orientation/consciousness: patient oriented x3 Limitations: no limitations HEENT Head: Yes normal to inspection Eyes General: appearance normal, both eyes and all related structures Neck Neck: Yes normal visual inspection Chest Chest palpation & inspection: normal palpation of entire chest wall Resp Effort & Inspection: normal respiratory effort Neuro General: patient oriented x3 Office Meds ketorolac 60 mg/2 mL intramuscular solution Performing Provider: Huseyin Bower MD Performing Location: [facility] Administered by: Gemini Dalton RN on 11/04/23 16:41 Dose Route Admin Location Dispensed Lot Number Expiration Date NDC Management Manager 60 mg IM right gluteal 2.0 mL [id number] 12/11/23 73738-356-64 [place] Assessment & Plan Assessment & Plan (1) Neck pain: Code(s): M54.2 - Cervicalgia Plan: Toradol injection provided. X-ray images were personally reviewed by me. Anti- inflammatory and muscle relaxant called in. Note for work given. If symptoms not improved to follow-up here. Orders: Orders XR chest 2V 11/04/23 R05.9 - Cough, unspecified AMB Ketorolac Injection 11/04/23 M54.50 - Low back pain, unspecified Medications: New meloxicam 15 mg PO DAILY 14 tabs 0RF cyclobenzaprine 10 mg PO BEDTIME 14 tabs 0RF Coding Level of Care Code Est Pt Level 4 (84641) Diagnoses Neck pain M54.2
== END 2023-11-04 17:25 | disposition home or self-care (01) ==
PROVIDERS: PCP Internal Medicine; Visit Provider Internal Medicine
DX: M54.2 Cervicalgia (principal)
CPT/HCPCS: 96372; 99214; J1885

== ENCOUNTER 2023-11-04 16:05 | Outpatient (REF) | payer OTHER, SELFPAY ==
--- NOTE | ~2023-11-04 | XR_ITS ---
EXAMINATION: XR CHEST CLINICAL INFORMATION: Cough COMPARISON: Chest x-ray on 03/21/2022 TECHNIQUE: 2 views of the chest were obtained. FINDINGS: vascularity. LUNGS: Lungs are clear. No pneumothorax is seen. BONES: Bony skeleton is intact. XR/XR chest 2V IMPRESSION: Unchanged Normal chest x-ray.
== END 2023-11-04 16:06 | disposition home or self-care (01) ==
LOC: HO.HMGCX 16:05
PROVIDERS: PCP Internal Medicine; Visit Provider Internal Medicine
DX: R05.9 Cough, unspecified (principal)
CPT/HCPCS: 71046

== ENCOUNTER 2023-12-09 08:39 | Outpatient (REF) | payer OTHER, SELFPAY ==
[2023-12-09 11:17] LABS: Free T4 (Free Thyroxine) 0.74 ng/dL (0.71-1.85); Thyroid Stimulating Hormone 0.99 uIU/mL (0.32-4.0)
== END 2023-12-09 08:40 | disposition home or self-care (01) ==
LOC: HO.LAB 08:39
PROVIDERS: PCP Internal Medicine; Visit Provider Internal Medicine Endocrinology, Diabetes & Metabolism
DX: E04.2 Nontoxic multinodular goiter (principal)
CPT/HCPCS: 36415; 84439; 84443; 99212

== ENCOUNTER 2023-12-09 08:39 | Outpatient (AMB) | payer OTHER, SELFPAY ==
--- NOTE | 2023-12-09 08:40 | MHC.OFFVIS ---
Intake Vital Signs 12/09/23 08:42 Height 5 ft 6 in Weight 151 lb 14.376 oz BMI 24.5 BP 98/68 Blood Pressure Location Lt brachial Position Sitting Pulse 62 Pulse Source Pulse Oximeter Intake Visit Reasons: NTMNG-confirmed Intake Note: Patient present today for NTMNG follow up visit. Investment Accounting Clerk Required: Yes Investment Accounting Clerk Language: [place] Investment Accounting Clerk Name: Spouse Information Interpreted: non-clinical & clinical Accompanied by: Spouse Allergies No Known Allergies Allergy (Verified 12/09/23 08:44) Medication List - Last Reconciled 12/09/23 by Sravan Trevino MD gabapentin 300 mg PO BEDTIME 30 days rizatriptan (Maxalt-DOCUMENT MANAGER) take 1 tab at onset of headache; if no relief may repeat 1 tab after at least 2 hrs; max = 3 tabs/24 hr PO HPI HPI Comments History of Present Illness Details 43 YO F with PMHx NTMNG who is seen in F/U for a NTMNG.. The patient last saw Dr. Mcdonough 12/08/2022 which she underwent an FNA Was initially diagnosed with multinodular thyroid while on vacation in [place]. She has had 3 ultrasounds so far. She does report she had a prior FNA biopsy at [facility], but she is unsure of the results at this time. She does mention dysphagia, tenderness in the neck as well as occasional pressure in the neck while lying flat. She reports a spontaenous weight loss of 12 kg earlier this year and also tremors. She otherwise denies any symptoms of hyper or hypothyroidism. Denies any history of head or neck irradiation. Denies any family history of thyroid cancer. Sister does have hypothyroidism. Thyroid US: 08/22/2022 Right Thyroid Lobe: 5.3 x 1.5 x 1.9 cm, volume 7.9 mL. Left Thyroid Lobe: 5.6 x 1.4 x 2.2 cm, volume 9.0 mL. Isthmus: 0.3 cm in maximum AP dimension. THYROID PARENCHYMA AND NODULES: Thyroid gland has normal echotexture with exception of a few nodules. The gland has a hypervascular appearance on color Doppler images. Nodules are as follows: 1.2 x 1 x 1.2 cm solid, hypoechoic nodule with slightly lobulated border is present in the iaz-yi-vceqy right lobe at its junction with the isthmus. Peripheral calcifications are seen. ACR TI-RADS score of 8 points, TR5. If not already performed, ultrasound-guided FNA would be recommended for this nodule. 0.6 x 0.2 x 0.5 cm predominantly cystic, smoothly marginated noncalcified nodule is present in the anterior left lower pole near its junction with the isthmus. A predominantly solid 0.7 x 0.4 x 0.7 cm, isoechoic, noncalcified nodule is present in the left lower pole. ACR TI-RADS score of 3 points, TR3. NODES: No lymphadenopathy is seen in the tissue surrounding the thyroid gland. Labs: No recent pertinent labs Status post FNA of right inferior nodule with benign cytology. Recent thyroid ultrasound showed no changes the size of the nodules [facility] Medical History Vitamin D deficiency Multinodular thyroid Vitamin D deficiency Postnasal drip Glaucoma Visit for pelvic exam Migraine Acid reflux Surgical History S/P thyroid biopsy Family History Father Digestive disorder Mother No problems noted. Social History Household Members: Spouse and Children Housing: House Alcohol intake: never Patient Tobacco Use Status: Never used Tobacco Substance Use Type: Marijuana Current occupational status: employed and other Cognitive needs: No Hearing needs: No Vision needs: No Female Reproductive History Menstrual Age of Menarche: 10 Physical Exam Const Other: Thyroid gland is normal size weighs about 15 g . There are no thyroid nodules palpable Assessment & Plan Assessment & Plan (1) Multinodular thyroid: Code(s): E04.2 - Nontoxic multinodular goiter Plan: This is a 43-year-old [place] female with a history of multinodular goiter status post FNA of right lower pole nodule with benign cytology and stable ultrasound. She appears to be clinically euthyroid. Plan is to check TSH and free T4. If above is normal, patient can follow up with the primary care provider who can order a thyroid ultrasound about 2 years time. This any significant change in the size or characteristics of the nodules, patient returned back to endocrinology Coding Level of Care Code Est Pt Level 3 (40267) Diagnoses Multinodular thyroid E04.2
[2023-12-09 08:42] VITALS: BP 98/68; PULSE 62; BMI 24.5
== END 2023-12-09 09:01 | disposition home or self-care (01) ==
PROVIDERS: PCP Internal Medicine; Visit Provider Internal Medicine Endocrinology, Diabetes & Metabolism
DX: E04.2 Nontoxic multinodular goiter (principal)
CPT/HCPCS: 99213

== ENCOUNTER 2024-01-29 08:05 | Outpatient (AMB) | payer OTHER, SELFPAY ==
--- NOTE | 2024-01-29 08:08 | AM.OFFWIN_ITS ---
Intake Vital Signs 01/29/24 08:10 Height 5 ft 6 in Weight 151 lb BMI 24.4 BP 110/66 Blood Pressure Location Lt brachial Position Sitting Pulse 54 Pulse Source Pulse Oximeter Pulse Oximetry (%) 100 Intake Visit Reasons: EP ?UTI Patient Tobacco Use Status: Never used Tobacco Allergies No Known Allergies Allergy (Verified 01/29/24 08:10) Medication List - Last Reconciled 01/29/24 by Mode Giles MD gabapentin 300 mg PO BEDTIME 30 days levofloxacin 500 mg PO DAILY 5 days rizatriptan (Maxalt-SENIOR HUMAN RESOURCES REPRESENTATIVE) take 1 tab at onset of headache; if no relief may repeat 1 tab after at least 2 hrs; max = 3 tabs/24 hr PO tramadol 50 mg PO Q8H PRN 5 days Do you need a note to return to daycare/school/sports/work: No HPI EP ?UTI HPI Details Patient is a 44-year-old female came in today to be evaluated for pain right flank radiating to right groin area For the past 4 days, patient says that the pain is getting worse She is taking Tylenol and ibuprofen which was helping initially but not anymore Patient a history of renal calculi in the past UA done shows positive leuk esterase 1+ I am treating her with antibiotic Tramadol sent for pain Ultrasound renal ordered stat to evaluate for possibility of renal calculi Encouraged patient to follow-up with the PCP And push lots of fluids She does not have any fever but does feel chills off and on There is no nausea vomiting diarrhea there is no headache no dizziness no shortness a breath no chest pains PFSH Medical History Vitamin D deficiency Multinodular thyroid Vitamin D deficiency Postnasal drip Glaucoma Visit for pelvic exam Migraine Acid reflux Surgical History S/P thyroid biopsy Family History Father Digestive disorder Mother No problems noted. Social History Household Members: Spouse and Children Housing: House Alcohol intake: never Patient Tobacco Use Status: Never used Tobacco Substance Use Type: Marijuana Current occupational status: employed and other Cognitive needs: No Hearing needs: No Vision needs: No Female Reproductive History Menstrual Age of Menarche: 10 Review of Systems Const All systems reviewed & are unremarkable except as noted in HPI and below Physical Exam Vital Signs: Last Vital Signs Pulse 54 01/29/24 08:10 BP 110/66 01/29/24 08:10 Pulse Ox 100 01/29/24 08:10 BMI result Body Mass Index 24.4 Const General: no acute distress Orientation/consciousness: patient oriented x3 Eyes General: appearance normal, both eyes and all related structures Resp Effort & Inspection: normal respiratory effort and able to speak in complete sentences Auscultation: clear to auscultation bilaterally Cardio Other: S1 S2 General: Yes CVA tenderness (Right) Back/Spine/Pelvis Back: CVA tenderness (Right) Neuro General: patient oriented x3 Psych Mental Status: mental status grossly normal Results AMB Urinalysis, Automated UA Leukoctes 70 Nathan/uL Last Edit by Julio Henriquez CMA on 01/29/24 08:18 UA Nitrite Negative Last Edit by Julio Henriquez CMA on 01/29/24 08:18 UA Urobilinogen 0.2 mg/dL Last Edit by Julio Henriquez CMA on 01/29/24 08 :18 UA Protein 0 mg/dL Last Edit by Julio Henriquez CMA on 01/29/24 08:18 UA pH 5.5 Last Edit by Julio Henriquez CMA on 01/29/24 08:18 UA Blood 0 Isaías/uL Last Edit by Julio Henriquez CMA on 01/29/24 08:18 UA Specific [place] 1.030 Last Edit by Julio Henriquez CMA on 01/29/24 08:18 UA Ketone Negative Last Edit by Julio Henriquez CMA on 01/29/24 08:18 UA Bilirubin 0 mg/dL Last Edit by Julio Henriquez CMA on 01/29/24 08:18 UA Glucose 0 mg/dL Last Edit by Julio Henriquez CMA on 01/29/24 08:18 Results Reviewed Results Reviewed: Laboratory Last Values Urine pH (Auto) 5.5 01/29/24 08:18 Specific [place] (Auto) 1.030 01/29/24 08:18 Urine Protein (Auto) 0 mg/dL 01/29/24 08:18 Glucose (UA)(Auto) 0 mg/dL 01/29/24 08:18 Urine Ketones (Auto) Negative 01/29/24 08:18 Urine Blood (Auto) 0 Isaías/uL 01/29/24 08:18 Urine Nitrite (Auto) Negative 01/29/24 08:18 Urine Bilirubin (Auto) 0 mg/dL 01/29/24 08:18 Urine Urobilinogen (Auto) 0.2 mg/dL 01/29/24 08:18 Leukocyte Esterase (Auto) 70 Nathan/uL 01/29/24 08:18 Assessment & Plan Assessment & Plan (1) Acute flank pain: Code(s): R10.9 - Unspecified abdominal pain (2) Abnormal finding on urinalysis: Code(s): R82.90 - Unspecified abnormal findings in urine (3) History of renal calculi: Code(s): Z87.442 - Personal history of urinary calculi (4) Pain management: Code(s): R52 - Pain, unspecified Plan Patient is a 44-year-old female came in today to be evaluated for pain right flank radiating to right groin area For the past 4 days, patient says that the pain is getting worse She is taking Tylenol and ibuprofen which was helping initially but not anymore Patient a history of renal calculi in the past UA done shows positive leuk esterase 1+ I am treating her with antibiotic Tramadol sent for pain Ultrasound renal ordered stat to evaluate for possibility of renal calculi Encouraged patient to follow-up with the PCP And push lots of fluids She does not have any fever but does feel chills off and on There is no nausea vomiting diarrhea there is no headache no dizziness no shortness a breath no chest pains Orders: Orders AMB Urinalysis Automated Today Z13.9 - Encounter for screening, unspecified US renal RT Today R10.9 - Unspecified abdominal pain, Z87.442 - Personal history of urinary calculi Urine Culture Today Z87.442 - Personal history of urinary calculi Medications: New tramadol 50 mg PO Q8H 5 days PRN 15 tabs 0RF pain levofloxacin 500 mg PO DAILY 5 days 5 tabs 0RF Coding Level of Care Code Est Pt Level 4 (24391) Diagnoses Acute flank pain R10.9 Abnormal finding on urinalysis R82.90 History of renal calculi Z87.442 Pain management R52
[2024-01-29 08:10] VITALS: BP 110/66; PULSE 54; O2SAT 100; BMI 24.4
== END 2024-01-29 08:29 | disposition home or self-care (01) ==
PROVIDERS: PCP Internal Medicine; Visit Provider Internal Medicine
DX: R10.9 Unspecified abdominal pain (principal); R82.90 Unspecified abnormal findings in urine; Z87.442 Personal history of urinary calculi
CPT/HCPCS: 81003; 99214

== ENCOUNTER 2024-01-29 08:39 | Outpatient (REF) | payer OTHER, SELFPAY | END 2024-01-29 08:40 | disposition home or self-care (01) | LOC: HO.LAB 08:39 | PROVIDERS: Visit Provider Internal Medicine | DX: Z87.442 Personal history of urinary calculi (principal) | CPT/HCPCS: 87086 ==

== ENCOUNTER 2024-01-29 11:17 | Outpatient (REF) | payer OTHER, SELFPAY ==
--- NOTE | ~2024-01-29 | US_ITS ---
STUDY: Renal ultrasound INDICATION: Acute right flank pain COMPARISON: None TECHNIQUE: Realtime ultrasound used to scan the right kidney and permanent documented images obtained. FINDINGS: Right kidney measures 10.0 x 3.6 x 4.9 cm and is unremarkable in appearance. No hydronephrosis, renal calculi or space-occupying lesions. US/US renal RT IMPRESSION: Unremarkable right kidney.
== END 2024-01-29 11:18 | disposition home or self-care (01) ==
LOC: HO.HMGCX 11:17
PROVIDERS: PCP Internal Medicine; Visit Provider Internal Medicine
DX: R10.9 Unspecified abdominal pain (principal); Z87.442 Personal history of urinary calculi
CPT/HCPCS: 76775

== ENCOUNTER 2024-03-03 08:51 | Outpatient (AMB) | payer OTHER, SELFPAY ==
[2024-03-03 08:56] VITALS: BP 120/80; PULSE 68; TEMP 36.4; O2SAT 99; BMI 25.0
--- NOTE | 2024-03-03 08:56 | MHC.OFFWIV ---
Intake Vital Signs 03/03/24 08:56 Height 5 ft 6 in Weight 155 lb BMI 25.0 BP 120/80 Blood Pressure Location Lt brachial Position Sitting Pulse 68 Pulse Source Pulse Oximeter Temp 97.5 F Temp Source Temporal Artery Scan Pulse Oximetry (%) 99 Oxygen Delivery Method Room Air Intake Visit Reasons: EP ear/throat pain losing balance nausea Intake Note: pt is here today for ear throat pain losing balance nausea started 1 week ago Patient Tobacco Use Status: Never used Tobacco Allergies No Known Allergies Allergy (Verified 03/03/24 09:42) Do you need a note to return to daycare/school/sports/work: No HPI HPI Comments History of Present Illness Details 44 y/o female patient who presents to walk in clinic with c/o feeling dizzy, tired, and ear itching x 1 week. [facility] Medical History Vitamin D deficiency Multinodular thyroid Vitamin D deficiency Postnasal drip Glaucoma Visit for pelvic exam Migraine Acid reflux Surgical History S/P thyroid biopsy Family History Father Digestive disorder Mother No problems noted. Social History Household Members: Spouse and Children Housing: House Alcohol intake: never Patient Tobacco Use Status: Never used Tobacco Substance Use Type: Marijuana Current occupational status: employed and other Cognitive needs: No Hearing needs: No Vision needs: No Female Reproductive History Menstrual Age of Menarche: 10 Physical Exam Vital Signs: Last Vital Signs Temp 97.5 F 03/03/24 08:56 Pulse 68 03/03/24 08:56 BP 120/80 03/03/24 08:56 Pulse Ox 99 03/03/24 08:56 Oxygen Delivery Method Room Air 03/03/24 08:56 BMI result Body Mass Index 25.0 Const General: comfortable and no acute distress Nutritional Appearance: thin Orientation/consciousness: patient oriented x3 HEENT Head: Yes normocephalic Ears: external ears normal and TM abnormal bulging and with fluid behind the TM bilateral; not bullous, not dull, not perforated and not retracted General nose exam: Abnormal mucous membranes and turbinates present pale Face and sinus: Yes sinuses nontender Mouth: moist mucous membranes Throat: Yes tonsils normal and Yes uvula midline Resp Effort & Inspection: normal respiratory effort, able to speak in complete sentences and no cough Auscultation: clear to auscultation bilaterally, no crackles, no rales, no rhonchi and no wheezes Cardio Rate: regular rate Rhythm: regular rhythm Neuro General: patient oriented x3, gait normal and moves all extremities Psych Speech and movement: Normal speech and movement present Results AMB Rapid Strep AMB Rapid Strep Negative Last Edit by Abiola Manzo MA on 03/03/24 09:54 Results Reviewed Results Reviewed: Laboratory Last Values Strep Scn Rapid Clinic Negative 03/03/24 09:54 Assessment & Plan Assessment & Plan (1) Dizziness and giddiness: Code(s): R42 - Dizziness and giddiness Plan: - Obtain enough sleep - Hydrate well with water (2) Otalgia of both ears: Code(s): H92.03 - Otalgia, bilateral Plan: - Acetaminophen for pain relief. Medications: New meclizine 25 mg PO BID PRN 60 tabs 0RF dizziness H92.03 - Otalgia, bilateral, R42 - Dizziness and giddiness acetaminophen 1,000 mg (2 x 500 mg) PO Q6H PRN 30 caps 0RF pain (scale score 4-6) H92.03 - Otalgia, bilateral Coding Level of Care Code Est Pt Level 3 (69926) Diagnoses Dizziness and giddiness R42 Otalgia of both ears H92.03 Time Spent (min) 15
== END 2024-03-03 10:28 | disposition home or self-care (01) ==
PROVIDERS: PCP Internal Medicine; Visit Provider Nurse Practitioner Family
DX: R42 Dizziness and giddiness (principal); H92.03 Otalgia, bilateral
CPT/HCPCS: 99213

== ENCOUNTER 2024-06-01 12:02 | Outpatient (AMB) | payer OTHER, SELFPAY ==
[2024-06-01 12:27] VITALS: BP 104/66; PULSE 58; O2SAT 99; BMI 25.0
--- NOTE | 2024-06-01 12:27 | MHC.PC.OV ---
Vital Signs 06/01/24 12:27 Height 5 ft 6 in Weight 155 lb BMI 25.0 BP 104/66 Blood Pressure Location Lt brachial Position Sitting Pulse 58 Pulse Source Pulse Oximeter Pulse Oximetry (%) 99 Oxygen Delivery Method Room Air Intake Visit Reasons: Annual PE Intake Note: Pt is here today for PE. Allergies No Known Allergies Allergy (Verified 06/01/24 12:39) Medication List - Last Reconciled 06/01/24 by Katie Keenan MD acetaminophen 1,000 mg (2 x 500 mg) PO Q6H PRN gabapentin 300 mg PO BEDTIME PRN meclizine 25 mg PO BID PRN rizatriptan (Maxalt-SCIENCE INTERN) take 1 tab at onset of headache; if no relief may repeat 1 tab after at least 2 hrs; max = 3 tabs/24 hr PO Tobacco use date assessed: 06/01/24 Dental Screening Dental Screen Date: 06/01/24 Did you have a dental visit in the last 12 months?: Yes Did you have a dental problem in the last 6 months where you did not have access to dental care?: No Was dental information given to patient?: Patient has dentist HPI Annual PE HPI Details Patient presents for a physical. She complains having low energy and feeling tired despite getting good sleep and eating well-balanced diet. 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 [facility] Medical History (Updated 06/01/24 @ 15:37 by Katie Keenan MD) Vitamin D deficiency Postnasal drip Glaucoma Migraine Acid reflux Surgical History S/P thyroid biopsy Family History Father Digestive disorder Mother No problems noted. 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 1. Little interest or pleasure in doing things: not at all 2. Feeling down, depressed, or hopeless: not at all 3. Trouble falling or staying asleep, or sleeping too much: not at all 4. Feeling tired or having little energy: not at all 5. Poor appetite or overeating: not at all 6. Feeling bad about yourself - or that you are a failure or have let yourself or your family down: not at all 7. Trouble concentrating on things, such as reading the newspaper or watching television: not at all 8. Moving or speaking so slowly that other people could have noticed. Or the opposite - being so fidgety or restless that you have been moving around a lot more than usual: not at all 9. Thoughts that you would be better off or of hurting yourself in some way: not at all Total score: 0 Depression Screening Interpretation: Negative Depression Screening Done: Yes 14089 - PHQ-9 Billing: Yes Source: Developed by Drs. Sravan Quispe, Shannan Phan, Vinayak Chen and colleagues, with an educational lavelle from [employer]. Thrive Questionnaire Date Thrive assessed: 06/01/24 I am a: Patient What is your living situation today?: I have a steady place to live Within the past 12 months, did the food you bought not last and you didn't have the money to get more?: Never true Within the past 12 months, did you worry whether your food would run out before you got money to buy more?: Never true Do you have trouble paying for medicines?: No Do you have trouble getting transportation to medical appointments?: No Do you have trouble paying your heating and electricity bill?: No Do you have trouble taking care of your child, family member or friend?: No Do you have trouble with day-to-day activities such as bathing, preparing meals, shopping, managing finances, etc.?: No Are you currently unemployed and looking for a job?: No Are you interested in more education?: No Please select the resources that you would like help with: None Currently or been in a relationship where the following occur: No concerns reported THRIVE Score: 0 AUDIT C Alcohol Use Questionnaire (AUDIT-C) 1. How often do you have a drink containing alcohol?: Never 3. How often do you have six or more drinks on one occasion?: Never Total Score: 0 MARIA LUISA-7 AMB Questionnaire MARIA LUISA-7 Date MARIA LUISA - 7 assessed: 06/01/24 Feeling nervous, anxious, or on edge: 0 = Not at all Not being able to stop or control worryin = Not at all Worrying too much about different things: 0 = Not at all Trouble relaxin = Not at all Being so restless that it is hard to sit still: 0 = Not at all Becoming easily annoyed or irritable: 0 = Not at all Feeling afraid as if something awful might happen: 0 = Not at all Total MARIA LUISA-7 score (0-4 normal; 5-9 mild; 10-14 moderate; 15-21 severe): 0 Source: Developed by Drs. Sravan Quispe, Shannan Phan, Vinayak Chen and colleagues, with an educational lavelle from [employer]. MARIA LUISA-7 Assessment Billing MARIA LUISA-7 Assessment Tool: MARIA LUISA-7 Assessment 59750 Review of Systems Const All systems reviewed & are unremarkable except as noted in HPI and below Eyes Reports no additional complaints Card Reports no additional complaints Resp Reports no additional complaints GI Reports no additional complaints Reports no additional complaints Physical exam (Primary Care) Vital Signs: Last Vital Signs Pulse 58 06/01/24 12:27 BP 104/66 06/01/24 12:27 Pulse Ox 99 06/01/24 12:27 Oxygen Delivery Method Room Air 06/01/24 12:27 BMI result Body Mass Index 25.0 Tobacco/Smoking Status: Tobacco use Status Tobacco use date assessed 06/01/24 06/01/24 12:44 Patient Tobacco Use Status Never used Tobacco 06/01/24 12:44 e-Cigarette/Vaping Use Never Used 06/01/24 12:44 PHQ-9: PHQ-9 Score PHQ-9: Total score 0 06/01/24 13:08 Depression Screening Interpretation: Negative Thrive Assessment: Date of Thrive Assessment Date Thrive assessed 06/01/24 06/01/24 12:44 Currently or been in a relationship where the following occur: No concerns reported Const General: no acute distress HENMT Head: Yes normal to inspection General nose exam: Normal external nose present Throat: Yes posterior oropharynx normal Eyes General: appearance normal, both eyes and all related structures Neck Neck: Yes no lymphadenopathy and Yes supple Resp Effort & Inspection: normal respiratory effort Auscultation: clear to auscultation bilaterally Cardio Rhythm: regular rhythm Heart sounds: S1 normal heart sound present and S2 normal heart sound present GI Inspection: Yes normal to inspection Palpation (GI): Soft to palpation Percussion: Yes normal to percussion Auscultation: normal bowel sounds Assessment and Plan Assessment & Plan (1) Annual physical exam: Code(s): Z00.00 - Encounter for general adult medical examination without abnormal findings Plan: Well-balanced diet regular physical activity discussed with the patient. She will be referred for mammogram and is up-to-date with Pap smear by final touch up painter patient will return for fasting blood (2) FHx: colon cancer: Comment: father colon ca Code(s): Z80.0 - Family history of malignant neoplasm of digestive organs Plan: Referred to GI for colonoscopy (3) Thyroid nodule: Comment: s/p bx 11/2022, benign, repeat thyroid US 10/03 stable, f/u with [facility] Endo Code(s): E04.1 - Nontoxic single thyroid nodule Plan: Referred to endocrinology (4) Cervical cancer screening: Comment: 03/05/2022 Pap equals negative with negative HPV. Code(s): Z12.4 - Encounter for screening for malignant neoplasm of cervix Orders: Orders TSH reflex Free T4 Today Katie Keenan MD Z00.00 - Encounter for general adult medical examination without abnormal findings Lipid Panel Today Katie Keenan MD Z00.00 - Encounter for general adult medical examination without abnormal findings UA w Microscopic Today Katie Keenan MD Z00.00 - Encounter for general adult medical examination without abnormal findings Comprehensive [place]. Panel Fast Today Katie Keenan MD Z00.00 - Encounter for general adult medical examination without abnormal findings Complete Blood Count Auto Diff Today Katie Keenan MD Z00.00 - Encounter for general adult medical examination without abnormal findings IRON PROFILE Today Katie Keenan MD Z00.00 - Encounter for general adult medical examination without abnormal findings Referrals Gastroenterology Referral Katie Keenan MD Z00.00 - Encounter for general adult medical examination without abnormal findings, Z80.0 - Family history of malignant neoplasm of digestive organs Endocrinology Referral Katie Keenan MD E04.1 - Nontoxic single thyroid nodule Medications: Changed From gabapentin 300 mg PO BEDTIME 30 days 30 caps 2RF To gabapentin 300 mg PO BEDTIME PRN Octavio Marie CNP Coding Level of Care Code Est Pt Prev Care 40-64y(95471) Diagnoses Annual physical exam Z00.00 FHx: colon cancer Z80.0 Thyroid nodule E04.1 Cervical cancer screening Z12.4 Additional Codes MARIA LUISA-7 Assessment Billing - MARIA LUISA-7 Assessment Tool: MARIA LUISA-7 Assessment [id number] ([id number])
== END 2024-06-01 15:04 | disposition home or self-care (01) ==
PROVIDERS: PCP Internal Medicine; Visit Provider Internal Medicine
DX: Z00.00 Encounter for general adult medical examination without abnormal findings (principal); Z80.0 Family history of malignant neoplasm of digestive organs; E04.1 Nontoxic single thyroid nodule
CPT/HCPCS: 99396

== ENCOUNTER 2024-06-09 08:47 | Outpatient (AMB) | payer OTHER, SELFPAY ==
--- NOTE | 2024-06-09 08:50 | A.OFFVIS_ITS ---
Vital Signs 06/09/24 08:53 Height 5 ft 6 in Weight 157 lb 13.616 oz BMI 25.5 BP 108/74 Blood Pressure Location Rt brachial Position Sitting Pulse 65 Pulse Source Pulse Oximeter Intake Visit Reasons: Nontoxic single thyroid nodule Intake Note: Patient present today Nontoxic Single Thyroid Nodule follow up. Licensed Club Manager Required: Yes Licensed Club Manager Language: Pashto Licensed Club Manager Services: Licensed Club Manager Present Licensed Club Manager Name: Zuleyma [id number] Information Interpreted: non-clinical & clinical Accompanied by: Spouse Allergies No Known Allergies Allergy (Verified 06/09/24 08:54) Medication List - Last Reconciled 06/09/24 by Gabby Messer MD acetaminophen 1,000 mg (2 x 500 mg) PO Q6H PRN gabapentin 300 mg PO BEDTIME PRN meclizine 25 mg PO BID PRN HPI Comments Details: 44 YO F with PMHx NTMNG who is seen in F/U for a NTMNG.. The patient was previously seeing Dr. Mcdonough and then last saw Dr. Trevino Dec 05 Here with HPI from prior visit Was initially diagnosed with multinodular thyroid while on vacation in [place] in 2020 She does report she had a prior FNA biopsy at [facility], but she is unsure of the results at this time. I dont see these. Subsequenlty US 09/02. showed right lower lobe dominant 1.2 cm Tr5 nodule. FNA Dec 04 was benign of this. US 09/2023 showed stale size of this nodule. She does mention dysphagia, tenderness in the neck as well as occasional pressure in the neck while lying flat. sometimes gets hoarsenss. Dysphagia has worsened. Getting a few hot flashes but no heat or cold intolerance. LMP last month, periods are less heavy but still getting them regularly. No tremors but she reports she gets these intermittenlty. no hair or skin changes. Bowel movements are normal. Feels tired more often, Denies any history of head or neck irradiation. Denies any family history of thyroid cancer. Sister does have hypothyroidism. Review of systems Constitutional: no fevers, chills or weight loss HEENT: no changes in vision Cardiac: No chest pain, discomfort or palpitations. Pulmonary: No SOB GI:No abdominal pain, no nausea or vomiting, no anorexia, no blood in stool : no burning micturition, dysuria or increase in urinary frequency Neurologic: No dizziness, no weakness in extremities MSK: no back pain or joint stiffness Physical exam General: sitting comfortably in bed in no acute distress HEENT: normocephalic/atraumatic, moist oral mucosa Neck: supple, symmetrical, palpable 1 cm right-sided thyroid nodule Cardiac: normal heart sounds Pulm: normal breath sounds B/L, no added breath sounds Abd: not distended, no tenderness Extremities: no edema, no signs of myxedema Neuro: AAO x3, Speech: normal, no facial droop, moving all 4 extremities Skin: no rash PFSH Medical History (Updated 06/09/24 @ 09:33 by Gabby Messer MD) Vitamin D deficiency Postnasal drip Glaucoma Migraine Acid reflux Surgical History S/P thyroid biopsy Family History Father Digestive disorder Mother No problems noted. 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 Housing: House Alcohol intake: never Patient Tobacco Use Status: Never used Tobacco e-Cigarette/Vaping Use: Never Used Substance Use Type: Marijuana service: No Current occupational status: employed and other Cognitive needs: No Hearing needs: No Vision needs: No Female Reproductive History Menstrual Age of Menarche: 10 Physical Exam Vital Signs: Last Vital Signs Pulse 65 06/09/24 08:53 BP 108/74 06/09/24 08:53 BMI result Body Mass Index 25.5 Results Reviewed Results Reviewed: Laboratory Tests 12/09/23 09:10 TSH 0.99 Free T4 0.74 US THYROID 10/03 CLINICAL INFORMATION: Nontoxic multinodular goiter. COMPARISON: Ultrasound soft tissue head/neck thyroid dated 08/22/2022. TECHNIQUE: Linear transducer grayscale and color Doppler examination with attention to the region of the thyroid. FINDINGS: SIZE: Measurements of the thyroid lobes and nodules are given in sagittal, anteroposterior and transverse dimensions respectively. Right Thyroid Lobe: 5.8 x 1.9 x 2.0 cm, volume 11.5 mL. Previously 5.3 x 1.5 x 1.9 cm, volume 7.9 mL. Parenchyma: The gland echotexture is heterogeneous. Thyroid vascularity is increased. Left Thyroid Lobe: 6.1 x 1.4 x 1.9 cm, volume 8.5 mL. Previously 5.6 x 1.4 x 2.2 cm, volume 9.0 mL. Parenchyma: The gland echotexture is heterogeneous. Thyroid vascularity is increased. Isthmus: 0.3 cm in maximum AP dimension. Previously 0.3 cm. Estimated total number of nodules greater than or equal to 1 cm: 1. [employer] nodules are described as follows: 1. Location: Right inferior. Size: 1.3 x 0.8 x 1.1 cm, volume 0.6 mL. Previously: 1.2 x 0.7 x 1.0 cm, volume 0.5 mL. Nodule characteristics: Composition: Solid (2). Echogenicity: Hypoechoic (2). Shape: Not taller than wide (0). Margins: Irregular (2). Echogenic Foci: Peripheral calcifications (2). ACR TI-RADS total points: 8 Previous: 8 ACR TI-RADS category: 5 Previous: 5 Significant change in size (>/= 20% in 2 dimensions and minimal increase of 2 mm or 50% or greater increase in volume): No Change in features: No Change in ACR TI-RADS risk category: No 2. Location: Left inferior. Size: 0.3 x 0.3 x 0.3 cm, volume 0.02 mL. Previously: New since the previous study. Nodule characteristics: Composition: Cystic(0). ACR TI-RADS total points: 0 ACR TI-RADS category: 1 3. Location: Left medial inferior. Size: 0.6 x 0.2 x 0.5 cm, volume 0.04 mL. Previously: 0.6 x 0.2 x 0.5 cm, volume 0.03 mL. Nodule characteristics: Composition: Cystic(0). ACR TI-RADS total points: 0 Previous: 4 ACR TI-RADS category: 1 Previous: 4 Significant change in size (>/= 20% in 2 dimensions and minimal increase of 2 mm or 50% or greater increase in volume): No Change in features: No Change in ACR TI-RADS risk category: No 4. Location: Left inferior. Size: 0.8 x 0.4 x 0.8 cm, volume 0.1 mL. Previously: 0.7 x 0.4 x 0.7 cm, volume 0.1 mL. Nodule characteristics: Composition: Solid/almost completely solid (2). Echogenicity: Isoechoic (1). Shape: Not taller than wide (0). Margins: Smooth (0). Echogenic Foci: None (0). ACR TI-RADS total points: 3 Previous: 3 ACR TI-RADS category: 3 Previous: 3 Significant change in size (>/= 20% in 2 dimensions and minimal increase of 2 mm or 50% or greater increase in volume): No Change in features: No Change in ACR TI-RADS risk category: No NODES: No lymphadenopathy is seen in the tissue surrounding the thyroid gland. US/US thyroid IMPRESSION: Enlarged heterogeneous thyroid gland with increased vascularity. Stable multinodular thyroid gland. Continued surveillance recommended with ultrasound in one year. Assessment & Plan Assessment & Plan (1) Thyroid nodule: Code(s): E04.1 - Nontoxic single thyroid nodule Category: Medical Plan: Patient with no personal history of head or neck radiation, with no family history of thyroid cancer, coming in for follow up of multinodular goiter, with right lower lobe dominant nodule measuring 1.3 cm which has a peripheral rim calcification, solid hypoechoic TR 5 category. She was diagnosed with nodules back in 2020. Underwent FNA of this nodule at [facility] apparently, I do not have these results but also underwent FNA with Dr. Mcdonough of the right lower lobe dominant nodule in November 2022 which came back as Dell category 2 (benign). Most recent ultrasound September 2023 showed stable size of her nodules. I explained that it is common to have thyroid nodules. About 95% of the time these nodules are benign. However if the nodule is > 1 cm in size or suspicious on ultrasound then a fine need aspiration biopsy is recommended. I explained to her that given that she has already had an FNA of this nodule which was benign and given that it has remained stable in size, these are reassuring factors. At this point we will have her repeat an ultrasound in September 2024 which would be a year after her last ultrasound and have her follow up with me in 10/2024 to discuss the results. She does have some compressive symptoms that are worsening, however unlikely related to her thyroid nodule which is not significantly large in size. If her nodule grows in size and the symptoms worsen, we can consider talking about possible lobectomy. However at this point I would not recommend that. She had normal TFTs from November 2023. We will plan to repeat prior to her next appointment. Plan: -ultrasound thyroid ordered for September 2024 -follow up in October 2024 to discuss results of ultrasound and also repeat TFTs prior to that appointment -if her nodule remains stable in size on the next ultrasound, we will plan to repeat the next thyroid ultrasound 2 years after Plan I spent 30 minutes in reviewing the record, seeing the patient and documenting in the medical record. Orders: Orders Thyroid Stimulating Hormone 4 Months E04.1 - Nontoxic single thyroid nodule US thyroid 4 Months E04.1 - Nontoxic single thyroid nodule Free T4 (Free Thyroxine) 4 Months E04.1 - Nontoxic single thyroid nodule Patient Instructions: Do thyroid ultrasound in September 2024 Do thyroid blood work 3-4 days prior to your next appointment with me in October 2024 Follow up in October 2024 to discuss results of ultrasound and blood work Coding Level of Care Code Est Pt Level 4 (04965) Diagnoses Thyroid nodule E04.1 Time Spent (min) 30
[2024-06-09 08:53] VITALS: BP 108/74; PULSE 65; BMI 25.5
== END 2024-06-09 16:16 | disposition home or self-care (01) ==
PROVIDERS: PCP Internal Medicine; Visit Provider Student in an Organized Health Care Education/Training Program
DX: E04.1 Nontoxic single thyroid nodule (principal)
CPT/HCPCS: 99214

== ENCOUNTER 2024-06-09 08:47 | Outpatient (REF) | payer OTHER, SELFPAY ==
[2024-06-09 09:55] LABS: MANUAL DIFF FLAG NO
[2024-06-09 10:12] LABS: Basophils Absolute Auto 0.1 X10*3/uL (0.0-0.2); Basophils Percent Auto 0.9 % (0-2); Eosinophils Absolute Auto 0.1 X10*3/uL (0.0-0.4); Eosinophils Percent Auto 2.4 % (0-4); Hematocrit 38.2 % (37.0-47.0); Hemoglobin 13.1 g/dl (12.0-16.0); Imm Gran Abs Auto 0.01 X10*3/uL (0.00-0.03); Imm Gran Pct Auto 0.2 % (0.0-0.4); Lymphocytes Absolute Auto 1.7 X10*3/uL (1.2-4.9); Lymphocytes Percent Auto 31.8 % (20-40); Mean Corpuscular HGB Conc 34.3 g/dl (31.0-35.0); Mean Corpuscular Hemoglobin 32.3 pg (27.0-33.0); Mean Corpuscular Volume 94.1 fL (80.0-98.0); Mean Platelet Volume 11.8 fL (9.4-12.3); Monocytes Absolute Auto 0.3 X10*3/uL (0.1-1.2); Monocytes Percent Auto 6.2 % (2-11); Neutrophils Absolute Auto 3.1 x10*3/uL (2.0-8.3); Neutrophils Percent Auto 58.5 % (45-73); Platelet Count 190 X10*3/uL (160-400); Red Blood Count 4.06 X10*6/uL (4.20-5.50); Red Cell Distribution Width 12.2 % (11.0-16.0); White Blood Count 5.3 X10*3/uL (4.8-10.8)
[2024-06-09 10:18] LABS: Appearance Urine Clear; Color Urine Yellow; Glucose Urine UA Negative (Negative); Leukocyte Esterase Urine Moderate (2+) (Negative); Nitrite Urine Negative (Negative); UMIC TRIGGER UA YES; Urine Blood Negative (Negative); Urine Ketones Negative (Negative); Urine Protein Negative (Neg-Trace)
[2024-06-09 10:23] LABS: Bacteria Urine 1+ (None Seen); Hyaline Casts Urine 0-2 /LPF (0-2); RBC Urine 0-2 /HPF (0-2)
[2024-06-09 11:13] LABS: Alanine Aminotransferase 11 U/L (0-31); Albumin Level 3.9 g/dL (3.5-5.0); Alkaline Phosphatase 50 U/L (39-117); Anion Gap 8 (12-20); Aspartate Amino Transferase 14 U/L (5-31); Bilirubin Total 0.6 mg/dL (0.0-1.0); Blood Urea Nitrogen 11 mg/dL (9-16); Calcium 8.9 mg/dL (8.4-10.2); Carbon Dioxide 25 mmol/L (22-29); Chloride 110 mmol/L (96-108); Cholesterol 167 mg/dL (<200); Estimated Glomerular Filt Rate > 60; Glucose Fasting 101 mg/dL (60-99); HDL Cholesterol 50 mg/dL (>40); Iron 76 mcg/dL (30-160); LDL Cholesterol Calculated 106 mg/dL (<100); Percent Iron Saturation 28 % (15-50); Potassium 4.2 mmol/L (3.3-5.1); Sodium 139 mmol/L (135-145); Total Iron Binding Capacity 273 mcg/dL (228-428); Total Protein 6.4 g/dL (6.5-8.0); Triglycerides 57 mg/dL (<150); Unsaturated Iron Binding 197 ug/dL
[2024-06-09 11:15] LABS: TSH reflex Free T4 0.58 uIU/mL (0.32-4.0)
== END 2024-06-09 08:48 | disposition home or self-care (01) ==
LOC: HO.LAB 08:47
PROVIDERS: Absent Provider Internal Medicine; PCP Internal Medicine; Visit Provider Student in an Organized Health Care Education/Training Program
DX: Z00.00 Encounter for general adult medical examination without abnormal findings (principal); E04.1 Nontoxic single thyroid nodule
CPT/HCPCS: 36415; 80053; 80061; 81001; 83540; 84443; 85025; 99212

== ENCOUNTER 2024-06-11 12:43 | Outpatient (AMB) | payer OTHER, SELFPAY ==
[2024-06-11 13:12] VITALS: BP 120/80; PULSE 63; TEMP 36.8; O2SAT 100; BMI 25.3
--- NOTE | 2024-06-11 13:12 | MHC.OFFWIV ---
Intake Vital Signs 06/11/24 13:12 Height 5 ft 6 in Weight 156 lb 8 oz BMI 25.3 BP 120/80 Blood Pressure Location Lt brachial Position Sitting Pulse 63 Pulse Source Pulse Oximeter Temp 98.3 F Temp Source Oral Pulse Oximetry (%) 100 Oxygen Delivery Method Room Air Intake Visit Reasons: Headaches Intake Note: Patient states she has had constant headache through the whole week, she suffers from migraines, not the same. Patient Tobacco Use Status: Never used Tobacco Allergies No Known Allergies Allergy (Verified 06/11/24 13:15) Medication List - Last Reconciled 06/11/24 by Casey Duvall MD acetaminophen 1,000 mg (2 x 500 mg) PO Q6H PRN gabapentin 300 mg PO BEDTIME PRN meclizine 25 mg PO BID PRN nitrofurantoin monohyd/m-cryst 100 mg (Macrobid) 100 mg PO Q12H 3 days Do you need a note to return to daycare/school/sports/work: Yes HPI Headaches HPI Details Patient has had longstanding headaches. These are posterior headaches. She does get some nausea from this. Pain is generated in neck shoulders and posterior head. She has physical therapy in the past for neck and shoulders. She has tried multiple medications including cyclobenzaprine in the past. Her son says they are worried about intracranial lesion/tumor. Sleep is okay but patient has been sleeping on the couch a lot. Her son also notes that she snores. Unclear if she has ever had sleep apnea ruled out. [facility] Medical History (Updated 06/09/24 @ 09:33 by Gabby Messer MD) Vitamin D deficiency Postnasal drip Glaucoma Migraine Acid reflux Surgical History S/P thyroid biopsy Family History Father Digestive disorder Mother No problems noted. 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 Housing: House Alcohol intake: never Patient Tobacco Use Status: Never used Tobacco e-Cigarette/Vaping Use: Never Used Substance Use Type: Marijuana service: No Current occupational status: employed and other Cognitive needs: No Hearing needs: No Vision needs: No Female Reproductive History Menstrual Age of Menarche: 10 Review of Systems Const Details: See HPI Physical Exam Vital Signs: Last Vital Signs Temp 98.3 F 06/11/24 13:12 Pulse 63 06/11/24 13:12 BP 120/80 06/11/24 13:12 Pulse Ox 100 06/11/24 13:12 Oxygen Delivery Method Room Air 06/11/24 13:12 BMI result Body Mass Index 25.3 Const General: no acute distress and well developed Nutritional Appearance: well nourished Orientation/consciousness: patient oriented x3 HEENT Other: PERRLA, EOMI TMs normal bilaterally Posterior pharynx normal Sinuses normal Head: Yes normocephalic and Yes atraumatic Eyes General: appearance normal, both eyes and all related structures Pupils: Equal, round and reactive pupils present EOM: EOMs intact bilaterally Resp Effort & Inspection: normal respiratory effort Auscultation: clear to auscultation bilaterally Cardio Rate: regular rate Rhythm: regular rhythm Heart sounds: S1 normal heart sound present, S2 normal heart sound present, no gallops, no murmurs and no rubs Back/Spine/Pelvis Other: Tenderness at bilateral trapezius muscles and cervical paraspinous muscles Tenderness at posterior scalp Neuro Other: Cranial nerves 2-12 intact Normal strength in all 5 extremities Reflexes normal General: patient oriented x3 and gait normal Cranial nerves: Yes Equal, round and reactive pupils present Psych Affect: normal affect Assessment & Plan Assessment & Plan (1) Headache: Code(s): R51.9 - Headache, unspecified Qualifiers: Headache chronicity pattern: unspecified pattern Headache type: unspecified Intractability: not intractable Qualified Code(s): R51.9 - Headache, unspecified Plan: Chronic posterior tension style headaches, likely secondary to cervicalgia She can use Tylenol and I advised her again against using to frequently to avoid rebound headaches. Will give her a course of cyclobenzaprine Use ice/heat Demonstrated gentle stretching techniques Advised she not sleep on the couch to avoid neck and shoulder pain from falling asleep in on comfortable positions. Sleep in bed and advised again sleeping on her back for now in case she has mild sleep apnea which can exacerbate headaches. She can also use some magnesium for muscle relaxation and sleep Hydrate well Based on her neurologic exam, I discussed with patient that I am not sending her to a neurologist today but she could discuss this in the future with her PCP if she still has ongoing headaches despite further attempts to treat this. I am referring her to physiatry for consideration injection therapy and other treatments to relax her neck and shoulder muscles. Will also give her note to be out of work for this week. Follow-up with PCP (2) Neck pain: Code(s): M54.2 - Cervicalgia Plan: As above Orders: Referrals Physiatry Referral M54.2 - Cervicalgia, R51.9 - Headache, unspecified Medications: New cyclobenzaprine 10 mg PO TID 10 days PRN 30 tabs 0RF muscle spasm Coding Level of Care Code Est Pt Level 3 (65404) Diagnoses Headache R51.9 Headache chronicity pattern: unspecified pattern Headache type: unspecified Intractability: not intractable Neck pain M54.2
== END 2024-06-11 13:49 | disposition home or self-care (01) ==
PROVIDERS: PCP Internal Medicine; Visit Provider Family Medicine
DX: R51.9 Headache, unspecified (principal); M54.2 Cervicalgia
CPT/HCPCS: 99051; 99213

== ENCOUNTER 2024-09-28 15:01 | Outpatient (AMB) | payer OTHER, SELFPAY ==
--- NOTE | 2024-09-28 15:09 | AM.OFFWIN_ITS ---
Intake Vital Signs 09/28/24 15:10 Height 5 ft 6 in Weight 159 lb BMI 25.7 BP 140/80 H Blood Pressure Location Rt brachial Position Sitting Pulse 74 Pulse Source Pulse Oximeter Pulse Oximetry (%) 98 Oxygen Delivery Method Room Air Intake Visit Reasons: EP BP High, headache/pressure in back of head Intake Note: Patient here for headache and pain in back of head that started 2 days ago. Patient Tobacco Use Status: Never used Tobacco Allergies No Known Allergies Allergy (Verified 09/28/24 15:11) Do you need a note to return to daycare/school/sports/work: No HPI EP BP High, headache/pressure in back of head HPI Details This note is constructed using voice recognition software. While every effort has been made to ensure accuracy, proofer apprentice errors may have been included. The patient is a 44 year old female who presents to the clinic today with posterior headache, neck pain for the past 2 days. She notes that she had similar in May, and was seen in the same clinic. At that time she was prescribed muscle relaxers. 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 She checked her blood pressure at home and read 140/90 while she was actively having pain, and she was concerned. The pain is mostly in the posterior neck, traveling up to her scalp. She is also migraine suffer, and these headaches are not like that. She denies lightheadedness, dizziness, confusion, speech problems, difficulty in strength or ambulation, numbness or tingling.. [facility] Medical History (Updated 06/09/24 @ 09:33 by Gabby Messer MD) Vitamin D deficiency Postnasal drip Glaucoma Migraine Acid reflux Surgical History S/P thyroid biopsy Family History Father Digestive disorder Mother No problems noted. 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 Housing: House Alcohol intake: never Patient Tobacco Use Status: Never used Tobacco e-Cigarette/Vaping Use: Never Used Substance Use Type: Marijuana service: No Current occupational status: employed and other Cognitive needs: No Hearing needs: No Vision needs: No Female Reproductive History Menstrual Age of Menarche: 10 Review of Systems Const All systems reviewed & are unremarkable except as noted in HPI and below Physical Exam Vital Signs: Last Vital Signs Pulse 74 09/28/24 15:10 BP 140/80 H 09/28/24 15:10 Pulse Ox 98 09/28/24 15:10 Oxygen Delivery Method Room Air 09/28/24 15:10 BMI result Body Mass Index 25.7 Const General: cooperative, healthy appearing, comfortable, no acute distress and well developed Orientation/consciousness: patient oriented x3 Limitations: no limitations HEENT Head: Yes normal to inspection Ears: hearing grossly normal bilaterally General nose exam: Normal external nose present Face and sinus: Yes normal facial exam Eyes General: appearance normal, both eyes and all related structures Neck Other: No nuchal rigidity. Neck: Yes normal visual inspection and Yes full ROM Resp Effort & Inspection: normal respiratory effort and able to speak in complete sentences Auscultation: clear to auscultation bilaterally Cardio Rate: regular rate Rhythm: regular rhythm Heart sounds: normal S1 and S2 Back/Spine/Pelvis Other: Bilateral cervical muscle increased bulging, with tenderness. Strength 5/5, grasps. Distal neurovascular exam intact. Skin General skin exam: no rashes or lesions noted Neuro General: patient oriented x3 Cranial nerves: Yes CN's II-XII intact bilaterally Extrem General: Yes normal to inspection Assessment & Plan Assessment & Plan (1) Cervicalgia: Code(s): M54.2 - Cervicalgia Plan: Appears muscular in nature. Advised rest, heat/ice, topical muscle rubs. We will try a prednisone burst for anti-inflammatory effects, coupled with cyclobenzaprine which has historically worked well for the similar symptoms. Advised patient to follow up with PCP for consideration of physical therapy with ongoing symptoms or worsening. Offered time off from work for rest, patient declined at this time. Plan See above for full details and plan. Medications: New prednisone 40 mg (2 x 20 mg) PO DAILY 10 tabs 0RF 5 days cyclobenzaprine 1 to 2 orally 3 times a day PRN; 10 tabs 0RF muscle spasm Coding Level of Care Code Est Pt Level 3 (84059) Diagnoses Cervicalgia M54.2
[2024-09-28 15:10] VITALS: BP 140/80; PULSE 74; O2SAT 98; BMI 25.7
== END 2024-09-28 15:52 | disposition home or self-care (01) ==
PROVIDERS: PCP Internal Medicine; Visit Provider Registered Nurse
DX: M54.2 Cervicalgia (principal)

== ENCOUNTER → 2024-09-28 15:01 | Outpatient (BNVA) | payer OTHER, SELFPAY | PROVIDERS: PCP Internal Medicine; Visit Provider Registered Nurse | DX: M54.2 Cervicalgia (principal) | CPT/HCPCS: 99212 ==

== ENCOUNTER 2024-10-06 11:16 | Outpatient (REF) | payer OTHER, SELFPAY | END 2024-10-06 11:17 | disposition home or self-care (01) | LOC: HO.US 11:16 | PROVIDERS: PCP Internal Medicine; Visit Provider Student in an Organized Health Care Education/Training Program | DX: E04.1 Nontoxic single thyroid nodule (principal) | CPT/HCPCS: 76536 ==

== ENCOUNTER 2024-11-08 14:05 | Outpatient (AMB) | payer OTHER, SELFPAY ==
--- NOTE | 2024-11-08 14:44 | AM.OFFWIN_ITS ---
Intake Vital Signs 11/08/24 14:51 Weight 154 lb BP 130/90 H Blood Pressure Location Lt brachial Position Sitting Pulse 74 Pulse Source Pulse Oximeter Pulse Oximetry (%) 98 Oxygen Delivery Method Room Air Intake Visit Reasons: EP severe headache, nauseous Intake Note: Patient here for severe headache, body aches and nausea which has been present for about 2 days but today is the worst day Patient Tobacco Use Status: Never used Tobacco Allergies No Known Allergies Allergy (Verified 11/08/24 14:53) Do you need a note to return to daycare/school/sports/work: No HPI HPI Comments History of Present Illness Details This is a 44-year-old female with no stated past medical history presenting for evaluation of headache, body aches, nausea and vomiting that has been ongoing for the past 2 days. Patient reports having chills but denies having any fevers. Patient has taken ibuprofen only without relief of her symptoms. She reports her headache is posterior and only minimally improved with ibuprofen. Patient denies having any recent sick contacts. [facility] Medical History (Updated 11/08/24 @ 15:30 by Rose [place] PA-C) Vitamin D deficiency Postnasal drip Glaucoma Migraine Acid reflux Surgical History S/P thyroid biopsy Family History Father Digestive disorder Mother No problems noted. 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 Housing: House Alcohol intake: never Patient Tobacco Use Status: Never used Tobacco e-Cigarette/Vaping Use: Never Used Substance Use Type: Marijuana service: No Current occupational status: employed and other Cognitive needs: No Hearing needs: No Vision needs: No Female Reproductive History Menstrual Age of Menarche: 10 Review of Systems Const All systems reviewed & are unremarkable except as noted in HPI and below Reports chills, Reports fatigue, Denies fever(s), Reports headache(s), Denies weakness and Reports other (myalgias) Eyes Reports as per HPI ENT Reports no additional complaints, Reports headache(s), Denies sinus pain, Denies sinus pressure and Denies sore throat Card Reports no additional complaints, Denies chest pain and Denies dyspnea Resp Denies chest congestion, Denies cough and Denies dyspnea GI Denies heartburn, Denies diarrhea, Reports nausea and Reports vomiting Reports no additional complaints Musc Reports no additional complaints Skin/Breast Reports system reviewed and no additional complaints, except as documented Neuro Reports no additional complaints, Reports headache(s) and Denies weakness Psych Reports no additional complaints Endo Reports no additional complaints and Reports fatigue Salvador/Lymph Reports no additional complaints Aller/Immun Reports no additional complaints Physical Exam Vital Signs: Last Vital Signs Pulse 74 11/08/24 14:51 BP 130/90 H 11/08/24 14:51 Pulse Ox 98 11/08/24 14:51 Oxygen Delivery Method Room Air 11/08/24 14:51 Const General: cooperative, comfortable, alert, awake and tired appearing; No lethargic Nutritional Appearance: average body habitus Orientation/consciousness: patient oriented x3 and No lethargic Limitations: no limitations HEENT Head: Yes normal to inspection Ears: hearing grossly normal bilaterally, external ears normal, TM's normal bilaterally and EAC's normal General nose exam: Normal external nose present Face and sinus: Yes normal facial exam and Yes sinuses nontender Mouth: Normal oral and palatal mucosa present Throat: Yes posterior oropharynx normal and No postnasal drainage Eyes General: appearance normal, both eyes and all related structures Resp Effort & Inspection: normal respiratory effort, able to speak in complete sentences, no audible wheezes, no cough and not tachypneic Auscultation: clear to auscultation bilaterally Cardio Rate: regular rate Rhythm: regular rhythm Back/Spine/Pelvis Cervical Spine: cervical ROM normal, cervical muscular tenderness (left > right), No cervical spasm and No Cervical spine tenderness Skin General skin exam: no rashes or lesions noted Neuro General: patient oriented x3 Psych Appearance: grossly normal Mental Status: mental status grossly normal Insight: Good insight present (Psych) Judgement: Good judgement present (Psych) Assessment & Plan Assessment & Plan (1) Acute upper respiratory infection: Comment: SARS panel ordered and results are pending. Code(s): J06.9 - Acute upper respiratory infection, unspecified Plan: Tylenol or ibuprofen as needed for myalgias. Increase clear fluids daily, patient is declining Zofran for her nausea and states that she has this prescription at home. (2) Headache: Comment: Patient is neurologically intact and in no acute distress. Code(s): R51.9 - Headache, unspecified Qualifiers: Headache chronicity pattern: unspecified pattern Headache type: un specified Intractability: not intractable Qualified Code(s): R51.9 - Headache, unspecified Plan: Fioricet q.6 hours p.r.n. headache. Increase clear fluids daily Orders: Orders SARS-CoV2/FLU/RSV Today J06.9 - Acute upper respiratory infection, unspecified Medications: New tauliszqio-xvwtjubscbezk-fkeo 50-300-40 mg (Fioricet) 1 cap PO Q6H PRN 10 caps 0RF headache Coding Level of Care Code Est Pt Level 3 (25867) Diagnoses Acute upper respiratory infection J06.9 Headache R51.9 Headache chronicity pattern: unspecified pattern Headache type: unspecified Intractability: not intractable Time Spent (min) 20
[2024-11-08 14:51] VITALS: BP 130/90; PULSE 74; O2SAT 98
--- OUTSIDE RECORDS SUMMARY | 2024-11-08 15:03 | XMS_ITS | Clinical Summary ---
Author Organization [facility] [place] [address] Care Team Providers Care Milk Runner Name Role Phone Unavailable Primary Care Provider Unavailabl e Social History Tobacco Use Types Packs/Day Years Used Date Smoking Tobacco: Never Assessed Sex and Gender Information Value Date Recorded Sex Assigned at Not on file Gender Identity Not on file Sexual Orientation Not on file Plan of Treatment Health Maintenance Due Date Last Done Comments Breast Cancer Screening 1978 DTaP,Tdap,and Td Vaccines (1 - Tdap) 1997 Hepatitis B Vaccines (1 of 3 - 19+ 3-dose series) 1997 Cervical Cancer Screening: P ap Smear 1999 Colorectal Cancer Screening: Colonoscopy 09/13/2022 Depression Screening 09/13/2022 HIV Screening 09/13/2022 Hepatitis C Screening 09/13/2022 Social Influencers of Health Screening 09/13/2022 COVID-19 Vaccine (2023-2 5 season) 2024 Influenza Vaccine (#1) 2024 HIB Vaccines Aged Out No longer eligi ble based on patient's age to complete this topic HPV Vaccines Aged Out No longer eligi ble based on patient's age to complete this topic Hepatitis A Vaccines Aged Out No long er eligible based on patient's age to complete this topic IPV Vaccines Aged Out No longer eligi ble based on patient's age to complete this topic MMR Vaccines Aged Out No longer eligi ble based on patient's age to complete this topic Meningococcal ACWY Vaccine Aged Out N o longer eligible based on patient's age to complete this topic Pneumococcal Vaccine: Pediat rics (0 to 5 Years) and At-Risk Patients (6 to 64 Years) Aged Out No longer eligible b ased on patient's age to complete this topic RSV Immunization Patients Un emigdio 20 months Aged Out No longer eligible b ased on patient's age to complete this topic Varicella Vaccines Aged Out No longer eligible based on patient's age to complete this topic
== END 2024-11-08 15:31 | disposition home or self-care (01) ==
PROVIDERS: PCP Internal Medicine; Visit Provider Physician Assistant
DX: J06.9 Acute upper respiratory infection, unspecified (principal); R51.9 Headache, unspecified

== ENCOUNTER 2024-11-08 14:05 | Outpatient (REF) | payer OTHER, SELFPAY ==
[2024-11-09 11:39] LABS: Influenza A PCR NEGATIVE (Negative); Influenza B PCR NEGATIVE (Negative); Resp Syncy Virus RNA Qual PCR NEGATIVE (Negative); SARS COV2 PCR INHOUSE NEGATIVE (Negative)
--- OUTSIDE RECORDS SUMMARY | 2024-11-09 12:41 | XMS_ITS | Clinical Summary ---
Author Organization [facility] [place] [address] Care Team Providers Care Lead Quality Technician Name Role Phone Unavailable Primary Care Provider [...]
== END 2024-11-08 14:06 | disposition home or self-care (01) ==
LOC: HO.LNP 14:05
PROVIDERS: Physician Assistant; PCP Internal Medicine; Visit Provider Internal Medicine
DX: J06.9 Acute upper respiratory infection, unspecified (principal)
CPT/HCPCS: 0241U; 99212

== ENCOUNTER 2024-11-24 11:16 | Outpatient (AMB) | payer OTHER, SELFPAY ==
[2024-11-24 11:18] VITALS: BP 108/76; PULSE 55; O2SAT 97; BMI 26.7
--- NOTE | 2024-11-24 11:18 | MHC.OFFVIS ---
Vital Signs 11/24/24 11:18 Height 5 ft 6 in Weight 165 lb 5.547 oz BMI 26.7 BP 108/76 Blood Pressure Location Lt brachial Position Sitting Pulse 55 Pulse Source Pulse Oximeter Pulse Oximetry (%) 97 Oxygen Delivery Method Room Air Intake Visit Reasons: Thyroid nodule Intake Note: Patient present today for Thyroid nodule office visit. Plumbing Engineer Required: Yes Plumbing Engineer Language: Turkmen Plumbing Engineer Services: Plumbing Engineer Present Plumbing Engineer Name: Herminio [id number] Information Interpreted: non-clinical & clinical Accompanied by: Spouse Allergies No Known Allergies Allergy (Verified 11/24/24 11:23) HPI Comments Details: 44 YO F with PMHx NTMNG who is seen in F/U for a NTMNG.. The patient was previously seeing Dr. Mcdonough and then last saw Dr. Trevino Dec 05 Here with HPI from prior visit Was initially diagnosed with multinodular thyroid while on vacation in [place] in 2020 She does report she had a prior FNA biopsy at [facility], but she is unsure of the results at this time. I dont see these. Subsequenlty US 09/02. showed right lower lobe dominant 1.2 cm Tr5 nodule. FNA Dec 04 was benign of this. US 09/2023 showed stale size of this nodule. She does mention dysphagia, tenderness in the neck as well as occasional pressure in the neck while lying flat. sometimes gets hoarsenss. Dysphagia has worsened. Getting a few hot flashes but no heat or cold intolerance. LMP last month, periods are less heavy but still getting them regularly. No tremors but she reports she gets these intermittenlty. no hair or skin changes. Bowel movements are normal. Feels tired more often, Denies any history of head or neck irradiation. Denies any family history of thyroid cancer. Sister does have hypothyroidism. Interval history 10/06/2024: Thyroid ultrasound shows stable size of the right lower pole 1.4 cm nodule solid, hypoechoic peripheral calcification and irregular TR 5 category. Also shows stable size of the left inferior 0.4 cm cyst in the 0.5 cm cyst. Another subcentimeter left lower pole 0.6 cm solid isoechoic TR 3 category nodule also remained stable. Overall stable size of all the nodules. Normal TSH from May 2024. Physical exam General: sitting comfortably in bed in no acute distress HEENT: normocephalic/atraumatic, moist oral mucosa Neck: supple, symmetrical, palpable 1 cm right-sided thyroid nodule Cardiac: normal heart sounds Pulm: normal breath sounds B/L, no added breath sounds Abd: not distended, no tenderness Extremities: no edema, no signs of myxedema Neuro: AAO x3, Speech: normal, no facial droop, moving all 4 extremities Skin: no rash Laboratory Tests 12/09/23 09:10 TSH 0.99 Free T4 0.74 Laboratory Tests 12/09/23 06/09/24 09:10 09:54 TSH 0.99 0.58 Free T4 0.74 US THYROID 10/06/24 CLINICAL INFORMATION: Nontoxic single thyroid nodule. COMPARISON: Ultrasound thyroid 09/16/2023 and 08/22/2022. TECHNIQUE: Linear transducer grayscale and color Doppler examination with attention to the region of the thyroid. FINDINGS: SIZE: Measurements of the thyroid lobes and nodules are given in sagittal, anteroposterior and transverse dimensions respectively. Right Thyroid Lobe: 5.9 x 1.3 x 1.8 cm, volume 7.1 mL. Previously 5.8 x 1.9 x 2.0 cm, volume 11.5 mL. Parenchyma: The gland echotexture is homogeneous. Thyroid vascularity is normal. Left Thyroid Lobe: 5.7 x 1.3 x 2.0 cm, volume 7.6 mL. Previously 6.1 x 1.4 x 1.9 cm, volume 8.5 mL. Parenchyma: The gland echotexture is homogeneous. Thyroid vascularity is normal. Isthmus: 0.3 cm in maximum AP dimension. Previously 0.3 cm. Estimated total number of nodules greater than or equal to 1 cm: 1. Office Automation Clerk nodules are described as follows: 1. Location: Right lower. Size: 1.4 x 0.8 x 1.0 cm, volume 0.5 mL. Previously: 1.3 x 0.8 x 1.1 cm, volume 0.6 mL. Nodule characteristics: Composition: Solid (2). Echogenicity: Hypoechoic (2). Shape: Not taller than wide (0). Margins: Irregular (2). Echogenic Foci: Peripheral calcifications (2). ACR TI-RADS total points: 8 Previous: 8 ACR TI-RADS category: 5 Previous: 5 Significant change in size (>/= 20% in 2 dimensions and minimal increase of 2 mm or 50% or greater increase in volume): No Change in features: No Change in ACR TI-RADS risk category: No 2. Location: Left lower. Size: 0.4 x 0.3 x 0.3 cm, volume 0.015 mL. Previously: 0.3 x 0.3 x 0.3 cm, volume 0.02 mL. Nodule characteristics: Composition: Cystic(0). ACR TI-RADS total points: 0 Previous: 0 ACR TI-RADS category: 1 Previous: 1 Significant change in size (>/= 20% in 2 dimensions and minimal increase of 2 mm or 50% or greater increase in volume): No Change in features: No Change in ACR TI-RADS risk category: No 3. Location: Left lower pole. Size: 0.5 x 0.2 x 0.4 cm, volume 0.023 mL. Previously: 0.6 x 0.2 x 0.5 cm, volume 0.03 mL. Nodule characteristics: Composition: Cystic(0). ACR TI-RADS total points: 0 Previous: 0 ACR TI-RADS category: 1 Previous: 1 Significant change in size (>/= 20% in 2 dimensions and minimal increase of 2 mm or 50% or greater increase in volume): No Change in features: No Change in ACR TI-RADS risk category: No 4. Location: Left lower. Size: 0.6 x 0.4 x 0.6 cm, volume 0.068 mL. Previously: 0.8 x 0.4 x 0.8 cm, volume 0.1 mL. Nodule characteristics: Composition: Solid/almost completely solid (2). Echogenicity: Isoechoic (1). Shape: Not taller than wide (0). Margins: Ill-defined (0). Echogenic Foci: None (0). ACR TI-RADS total points: 3 Previous: 0 ACR TI-RADS category: 3 Previous: 1 Significant change in size (>/= 20% in 2 dimensions and minimal increase of 2 mm or 50% or greater increase in volume): No Change in features: Yes Change in ACR TI-RADS risk category: Yes NODES: No lymphadenopathy is seen in the tissue surrounding the thyroid gland. US/US thyroid IMPRESSION: Multinodular thyroid gland. Largest nodule 1.4 cm RIGHT lower TR 5 as detailed above with criteria for biopsy. Correlation with prior biopsy results recommended to determine further management. Continued surveillance recommended. US THYROID 10/03 CLINICAL INFORMATION: Nontoxic multinodular goiter. COMPARISON: Ultrasound soft tissue head/neck thyroid dated 08/22/2022. TECHNIQUE: Linear transducer grayscale and color Doppler examination with attention to the region of the thyroid. FINDINGS: SIZE: Measurements of the thyroid lobes and nodules are given in sagittal, anteroposterior and transverse dimensions respectively. Right Thyroid Lobe: 5.8 x 1.9 x 2.0 cm, volume 11.5 mL. Previously 5.3 x 1.5 x 1.9 cm, volume 7.9 mL. Parenchyma: The gland echotexture is heterogeneous. Thyroid vascularity is increased. Left Thyroid Lobe: 6.1 x 1.4 x 1.9 cm, volume 8.5 mL. Previously 5.6 x 1.4 x 2.2 cm, volume 9.0 mL. Parenchyma: The gland echotexture is heterogeneous. Thyroid vascularity is increased. Isthmus: 0.3 cm in maximum AP dimension. Previously 0.3 cm. Estimated total number of nodules greater than or equal to 1 cm: 1. Office Automation Clerk nodules are described as follows: 1. Location: Right inferior. Size: 1.3 x 0.8 x 1.1 cm, volume 0.6 mL. Previously: 1.2 x 0.7 x 1.0 cm, volume 0.5 mL. Nodule characteristics: Composition: Solid (2). Echogenicity: Hypoechoic (2). Shape: Not taller than wide (0). Margins: Irregular (2). Echogenic Foci: Peripheral calcifications (2). ACR TI-RADS total points: 8 Previous: 8 ACR TI-RADS category: 5 Previous: 5 Significant change in size (>/= 20% in 2 dimensions and minimal increase of 2 mm or 50% or greater increase in volume): No Change in features: No Change in ACR TI-RADS risk category: No 2. Location: Left inferior. Size: 0.3 x 0.3 x 0.3 cm, volume 0.02 mL. Previously: New since the previous study. Nodule characteristics: Composition: Cystic(0). ACR TI-RADS total points: 0 ACR TI-RADS category: 1 3. Location: Left medial inferior. Size: 0.6 x 0.2 x 0.5 cm, volume 0.04 mL. Previously: 0.6 x 0.2 x 0.5 cm, volume 0.03 mL. Nodule characteristics: Composition: Cystic(0). ACR TI-RADS total points: 0 Previous: 4 ACR TI-RADS category: 1 Previous: 4 Significant change in size (>/= 20% in 2 dimensions and minimal increase of 2 mm or 50% or greater increase in volume): No Change in features: No Change in ACR TI-RADS risk category: No 4. Location: Left inferior. Size: 0.8 x 0.4 x 0.8 cm, volume 0.1 mL. Previously: 0.7 x 0.4 x 0.7 cm, volume 0.1 mL. Nodule characteristics: Composition: Solid/almost completely solid (2). Echogenicity: Isoechoic (1). Shape: Not taller than wide (0). Margins: Smooth (0). Echogenic Foci: None (0). ACR TI-RADS total points: 3 Previous: 3 ACR TI-RADS category: 3 Previous: 3 Significant change in size (>/= 20% in 2 dimensions and minimal increase of 2 mm or 50% or greater increase in volume): No Change in features: No Change in ACR TI-RADS risk category: No NODES: No lymphadenopathy is seen in the tissue surrounding the thyroid gland. US/US thyroid IMPRESSION: Enlarged heterogeneous thyroid gland with increased vascularity. Stable multinodular thyroid gland. Continued surveillance recommended with ultrasound in one year. [facility] Medical History (Updated 11/24/24 @ 11:31 by Gabby Messer MD) Multinodular goiter (nontoxic) Vitamin D deficiency Postnasal drip Glaucoma Migraine Acid reflux Surgical History S/P thyroid biopsy Family History Father Digestive disorder Mother No problems noted. 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 Housing: House Alcohol intake: never Patient Tobacco Use Status: Never used Tobacco e-Cigarette/Vaping Use: Never Used Substance Use Type: Marijuana service: No Current occupational status: employed and other Cognitive needs: No Hearing needs: No Vision needs: No Female Reproductive History Menstrual Age of Menarche: 10 Physical Exam Vital Signs: Last Vital Signs Pulse 55 11/24/24 11:18 BP 108/76 11/24/24 11:18 Pulse Ox 97 11/24/24 11:18 Oxygen Delivery Method Room Air 11/24/24 11:18 BMI result Body Mass Index 26.7 Assessment & Plan Assessment & Plan (1) Multinodular goiter (nontoxic): Code(s): E04.2 - Nontoxic multinodular goiter Category: Medical (2) Thyroid nodule: Code(s): E04.1 - Nontoxic single thyroid nodule Category: Medical Plan: Patient with no personal history of head or neck radiation, with no family history of thyroid cancer, coming in for follow up of multinodular goiter, with right lower lobe dominant nodule measuring 1.3 cm which has a peripheral rim calcification, solid hypoechoic TR 5 category. She was diagnosed with nodules back in 2020. Underwent FNA of this nodule at [facility] apparently, I do not have these results but also underwent FNA with Dr. Mcdonough of the right lower lobe dominant nodule in November 2022 which came back as [place] category 2 (benign). ultrasound September 2023 showed stable size of her nodules. 10/06/2024: Thyroid ultrasound shows stable size of the right lower pole 1.4 cm nodule solid, hypoechoic peripheral calcification and irregular TR 5 category. Also shows stable size of the left inferior 0.4 cm cyst in the 0.5 cm cyst. Another subcentimeter left lower pole 0.6 cm solid isoechoic TR 3 category nodule also remained stable. Overall stable size of all the nodules. At this point given TR 5 category which are classified as high suspicion nodules with greater than 50% chance of malignancy, ultrasound should be repeated annually for 5 years and since her diagnosis was in 2020, we will plan to repeat ultrasound next year. She does have some compressive symptoms that are worsening, however unlikely related to her thyroid nodule which is not significantly large in size. If her nodule grows in size and the symptoms worsen, we can consider talking about possible lobectomy. However at this point I would not recommend that. She had normal TFTs from 2023. We will plan to repeat prior to her next appointment. Plan: -ultrasound thyroid ordered for October 2025 -follow up in November 2025 to discuss results of ultrasound and also repeat TFTs prior to that appointment -if her nodule remains stable in size on the next ultrasound, we will plan to repeat the next thyroid ultrasound 2 years after Plan See above Orders: Orders US thyroid 10/16/25 E04.2 - Nontoxic multinodular goiter TSH reflex Free T4 10/16/25 E04.2 - Nontoxic multinodular goiter Patient Instructions: Do thyroid ultrasound in Oct 2025, someone will call you to schedule this in the next few months Do blood work in Oct 2025 Follow up in Nov 2025 [place] 2025'da tiroid ultrasonu yap?n, bunu ?n?m?jackie kenyon? ay i?inde planlamak i?in darcyolejonnathan maury aminni [place] 2025'da татьяна tahlili tay?n ?ubat 2025'da olu Coding Level of Care Code Est Pt Level 3 (75434) Diagnoses Multinodular goiter (nontoxic) E04.2 Thyroid nodule E04.1
--- OUTSIDE RECORDS SUMMARY | 2024-11-24 11:54 | XMS_ITS | Clinical Summary ---
Author Organization [facility] [place] [address] Care Team Providers Care Reel And Rewinder Operator Name Role Phone Unavailable Primary Care Provider Unavailabl e Social History Tobacco Use Types Packs/Day Years Used Date Smoking Tobacco: Never Assessed Comments Unknown Sex and Gender Information Value Date Recorded Sex Assigned at Not on file Legal Sex Female 6:10 PM EST Gender Identity Not on file Sexual Orientation [...] patient's age to complete this topic Meningococcal B Vacine Aged Out No lo nger eligible based on patient's age to complete [...]
== END 2024-11-24 11:35 | disposition home or self-care (01) ==
PROVIDERS: PCP Internal Medicine; Visit Provider Student in an Organized Health Care Education/Training Program
DX: E04.2 Nontoxic multinodular goiter (principal); E04.1 Nontoxic single thyroid nodule
CPT/HCPCS: 99213

== ENCOUNTER → 2024-11-24 11:16 | Outpatient (BNVA) | payer OTHER, SELFPAY | PROVIDERS: PCP Internal Medicine; Visit Provider Student in an Organized Health Care Education/Training Program | DX: E04.2 Nontoxic multinodular goiter (principal); E04.1 Nontoxic single thyroid nodule | CPT/HCPCS: 99212 ==

== ENCOUNTER 2024-12-21 15:49 | Outpatient (AMB) | payer OTHER, SELFPAY ==
--- NOTE | 2024-12-21 15:51 | A.OFFVIS_ITS ---
Vital Signs 12/21/24 15:52 Height 5 ft 6 in Weight 163 lb 2.273 oz BMI 26.3 BP 126/72 Blood Pressure Location Rt brachial Position Sitting Pulse 62 Pulse Source Pulse Oximeter Pulse Oximetry (%) 99 Oxygen Delivery Method Room Air Intake Visit Reasons: [place] screening Intake Note: NEW PATIENT for initial colo screening. + FMHx. Chief Complaint; C/O reflux w/ dysphagia, seemingly worse in the AM. Pt denies any additional concerns (N+V, abd pain, fecal abn). Environmental Services Floor Tech Required: Yes Environmental Services Floor Tech Services: Environmental Services Floor Tech Offered & Declined Environmental Services Floor Tech Name: Information Interpreted: non-clinical & clinical Accompanied by: Spouse Allergies No Known Allergies Allergy (Verified 12/21/24 15:51) HPI HPI [place] screening: Details: LAST VISIT WITH GEORGETTE HAMMONDS 02/12/2021 A 41-year-old female under when she EGD, barium swallow showing mild reflux and gastric emptying study-that was normal. She has intermittent acid reflux certainly worsen with while fasting for -of she will begin pantoprazole 20 mg and avoid culprits. Encouraged to call questions or concerns. Appreciate the opportunity assist in the care the patient. This no constructed using a voice recognition software. While every effort is made to ensure accuracy hvac service manager errors may be included. TODAY'S VISIT 44 Year old? female here today for pre colonoscopy screening.? Patient was sent to us by her PCP.? Patient was seen before in our office by Georgette Root for acid reflux. Patient still has occasional acid reflux depending on what she eats. Not using any medications. Avoiding culprits. This is her first colonoscopy screening.? Patient denies any gastrointestinal symptoms in the past or at present.? Family history of CRC. Patient's father was diagnosed in his late 50s with colorectal cancer. Patient denies any issues with anesthesia in the past.? Negative for history of sleep apnea.? Denies any history of cardiac, renal, pulmonary, or hepatic disease.?? No history of infectious? diseases like hepatitis A, B, C, HIV or tuberculosis.? Patient is not on any anticoagulation [facility] Medical History Multinodular goiter (nontoxic) Vitamin D deficiency Postnasal drip Glaucoma Migraine Acid reflux Surgical History History of esophagogastroduodenoscopy (EGD) S/P thyroid biopsy Family History Father Digestive disorder Stomach cancer Mother No problems noted. 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 Housing: House Alcohol intake: never Patient Tobacco Use Status: Never used Tobacco e-Cigarette/Vaping Use: Never Used Use of substances other than those prescribed or required for medical reasons: No service: No Current occupational status: employed and other Cognitive needs: No Hearing needs: No Vision needs: No Female Reproductive History Menstrual Age of Menarche: 10 Review of Systems Const Denies weight gain and Denies weight loss ENT Reports no additional complaints, Denies dysphagia and Denies odynophagia Card Reports no additional complaints Resp Reports no additional complaints GI Denies abdominal pain, Denies belching, Denies melena, Denies bloating, Denies change in bowel habits, Denies dysphagia, Denies excessive flatus, Denies dyspepsia, Reports heartburn (Occasional), Denies diarrhea, Denies loose stools, Denies nausea, Denies odynophagia and Denies vomiting Reports no additional complaints Musc Reports no additional complaints Neuro Reports no additional complaints Psych Reports no additional complaints Endo Reports no additional complaints Physical Exam Vital Signs: Last Vital Signs Pulse 62 12/21/24 15:52 BP 126/72 12/21/24 15:52 Pulse Ox 99 12/21/24 15:52 Oxygen Delivery Method Room Air 12/21/24 15:52 BMI result Body Mass Index 26.3 Const General: healthy appearing and no acute distress Nutritional Appearance: obese Orientation/consciousness: patient oriented x3 Resp Effort & Inspection: normal respiratory effort, able to speak in complete sentences, no tracheal deviation and symmetric chest movement Auscultation: clear to auscultation bilaterally Cardio Rate: regular rate GI Inspection: Yes normal to inspection, No distended and Yes obesity Palpation (GI): Soft to palpation, not firm, nontender and No hepatosplenomegaly present Auscultation: normal bowel sounds General: Yes no CVA tenderness Back/Spine/Pelvis Back: no CVA tenderness Skin General skin exam: elasticity normal, turgor normal and dry skin Neuro General: patient oriented x3 Psych Appearance: grossly normal Mental Status: mental status grossly normal Assessment & Plan Assessment & Plan (1) FHx: colon cancer: Comment: father colon ca diagnosed at age 59 Code(s): Z80.0 - Family history of malignant neoplasm of digestive organs Category: Medical (2) Screen for colon cancer: Code(s): Z12.11 - Encounter for screening for malignant neoplasm of colon Plan Patient denies any GI, cardiac or respiratory symptoms. Occasional acid reflux, patient is not taking any PPIs.? Denies any issues with anesthesia in the past.? Denies any history of sleep apnea.? No history infectious diseases in the past or present.? Not on any anticoagulation therapy.? Patient's father was diagnosed with colon cancer at age 59.? Patient denies melena, hematochezia, unintentional weight loss or ribbon like stools.? Discussed at length the pre-procedure,? prep, diet & medications as well as what to expect prior, during and after the procedure.?? Stressed the importance of good bowel prep.? Recommended the use of Vaseline or Calmoseptine OTC & baby wipes with bowel movements to promote comfort.? ?Patient verbalizes understanding and agrees to plan of care.? She was given the opportunity to ask questions and all questions answered.? We will see her after the procedure.? Medications: New bisacodyl (Dulcolax (bisacodyl)) take 4 tabs at noon the day before your colonoscopy 20 mg (4 x 5 mg) PO ONCE 1 day 4 tabs 0RF Z12.11 - Encounter for screening for malignant neoplasm of colon polyethylene glycol 3350 (Miralax) As directed by gastro[facility]ology [facility] at [facility] 238 grams PO ONCE 238 grams 0RF Z12.11 - Encounter for screening for malignant neoplasm of colon Coding Level of Care Code New Pt Level 3 (12883) Diagnoses FHx: colon cancer Z80.0 Screen for colon cancer Z12.11 Time Spent (min) 40 Comment 30 minutes spent with patient and additional 10 minutes spent reviewing her records
[2024-12-21 15:52] VITALS: BP 126/72; PULSE 62; O2SAT 99; BMI 26.3
--- OUTSIDE RECORDS SUMMARY | 2024-12-21 18:25 | XMS_ITS | Clinical Summary ---
Author Organization [facility] [place] [address] Care Team Providers Care Arc Welding Machine Operator Name Role Phone Unavailable Primary Care [...]
== END 2024-12-21 17:00 ==
LOC: HO.HGI 15:49
PROVIDERS: PCP Internal Medicine; Visit Provider Nurse Practitioner Family
DX: Z01.818 Encounter for other preprocedural examination (principal); Z12.11 Encounter for screening for malignant neoplasm of colon; Z80.0 Family history of malignant neoplasm of digestive organs
CPT/HCPCS: 99202

== ENCOUNTER → 2024-12-21 15:49 | Outpatient (BNVA) | payer OTHER, SELFPAY | PROVIDERS: PCP Internal Medicine; Visit Provider Nurse Practitioner Family | DX: Z12.11 Encounter for screening for malignant neoplasm of colon (principal); Z80.0 Family history of malignant neoplasm of digestive organs | CPT/HCPCS: 99202 ==

== ENCOUNTER 2025-02-22 14:55 | Outpatient (AMB) | payer OTHER, SELFPAY ==
--- OUTSIDE RECORDS SUMMARY | 2025-02-22 14:57 | XMS_ITS | Clinical Summary ---
Author Organization [facility] [place] [address] Care Team Providers Care Executive Producer Promos Name Role Phone Unavailable Primary Care Provider [...] Vaccine (2023-2 5 season) 2024 Influenza Vaccine (Season Ended) 2025 HIB Vaccines Aged Out No longer eligi [...] age to complete this topic Meningococcal B Vaccine Aged Out No l onger eligible based on patient's age to complete [...]
[2025-02-22 15:10] VITALS: BP 122/74; PULSE 98; TEMP 36.9; O2SAT 98; BMI 25.3
--- NOTE | 2025-02-22 15:10 | MHC.OFFWIV ---
Intake Vital Signs 02/22/25 15:10 Height 5 ft 6 in Weight 157 lb BMI 25.3 BP 122/74 Blood Pressure Location Lt brachial Position Sitting Pulse 98 Pulse Source Pulse Oximeter Temp 98.4 F Temp Source Oral Pulse Oximetry (%) 98 Intake Visit Reasons: EP ?Sinus Infection Patient Tobacco Use Status: Never used Tobacco Allergies No Known Allergies Allergy (Verified 02/22/25 15:10) Do you need a note to return to daycare/school/sports/work: Yes HPI HPI Comments History of Present Illness Details Patient is a 45yo F who presents for sinus infection She darryn Wade and an interpreting service was used for the entire visit Her significant other was with her in office room as well She states ongoing symptoms x 3-4 Symptoms include nasal congestion Patient states no headache or facial pain + clogged nose and it causes eye pressure Ears itching + body aches and cough with some phlegm She said intermittent hot/cold feeling without documented fever Patient has tried Ibuprofen + sick contacts at home; her sister pneumonia Had a nose bleed 3-4 days ago with onset of symptoms. No bleeds since [facility] Medical History Multinodular goiter (nontoxic) Vitamin D deficiency Postnasal drip Glaucoma Migraine Acid reflux Surgical History History of esophagogastroduodenoscopy (EGD) S/P thyroid biopsy Family History Father Digestive disorder Stomach cancer Mother No problems noted. 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 Housing: House Alcohol intake: never Patient Tobacco Use Status: Never used Tobacco e-Cigarette/Vaping Use: Never Used service: No Current occupational status: employed and other Cognitive needs: No Hearing needs: No Vision needs: No Female Reproductive History Menstrual Age of Menarche: 10 Review of Systems Const Reports chills, Reports fatigue, Reports fever(s) and Denies headache(s) Eyes Denies blurry vision ENT Denies dizziness, Denies otalgia, Denies headache(s), Reports nasal congestion, Reports sore throat and Denies throat swelling Card Denies chest pain Resp Reports change in phlegm color, Reports chest congestion and Reports cough GI Denies abdominal pain and Denies vomiting Musc Reports myalgias Skin/Breast Denies rash Neuro Denies dizziness and Denies headache(s) Endo Reports fatigue Aller/Immun Denies throat swelling Physical Exam Vital Signs: Last Vital Signs Temp 98.4 F 02/22/25 15:10 Pulse 98 02/22/25 15:10 BP 122/74 02/22/25 15:10 Pulse Ox 98 02/22/25 15:10 BMI result Body Mass Index 25.3 General: Non-toxic, NAD. Speaking full sentences. Skin: Warm dry throughout Eye: EOMI HENT: Airway patent. Uvula midline. No pharyngeal erythema or edema. No POLISHING WHEEL SETTER. Bilateral canals clear. TM non-erythematous, non-bulging. No TM perforation or hemotympanum noted. +rhinorrhea without sinus ttp Respiratory: No tachypnea. No rales. Cardiac: RRR. No murmur MSK: Full ROM extremities. Neurology: Alert. No aphasia or facial droop. Gait without abnormality Psych: Good mood and affect Assessment & Plan Assessment & Plan (1) Acute cough: Code(s): R05.1 - Acute cough Plan: Patient seen and evaluated. Close contact with PNA and similar symptoms Cover with azithromycin Tessalon for cough Discussed ER s/s that warrant eval All instructions gone over with pt using interpretter Patient and gave verbal understanding and had no additional questions or concerns at time of discharge All questions answered Medications: New benzonatate 200 mg PO BID-TID PRN 14 caps 0RF cough azithromycin start on day 2 of therapy 250 mg PO DAILY 6 tabs 0RF 6 days Coding Level of Care Code Est Pt Level 3 (10609) Diagnoses Acute cough R05.1
== END 2025-02-22 15:51 | disposition home or self-care (01) ==
PROVIDERS: PCP Internal Medicine; Visit Provider Physician Assistant
DX: R05.1 Acute cough (principal)

== ENCOUNTER → 2025-02-22 14:55 | Outpatient (BNVA) | payer OTHER, SELFPAY | PROVIDERS: PCP Internal Medicine; Visit Provider Physician Assistant | DX: R05.1 Acute cough (principal) | CPT/HCPCS: 99212 ==

== ENCOUNTER 2025-02-28 09:59 | Outpatient (REF) | payer OTHER, SELFPAY ==
--- NOTE | ~2025-02-28 | XR_ITS ---
EXAMINATION: XR CHEST 2 VIEWS HISTORY: J45.909 - Unspecified asthma, uncomplicated COMPARISON: Comparison is made with the prior examination dated 11/04/2023. FINDINGS: PA and lateral views of the chest are submitted. The lungs are expanded and clear. There is no pleural effusion, pneumothorax, or pulmonary vascular congestion. The heart is normal in size. The bones are intact. XR/XR chest 2V IMPRESSION: No acute cardiopulmonary abnormality. Electronically signed by: Sravan Whyte MD 02/28/2025 11:56 AM EDT
--- OUTSIDE RECORDS SUMMARY | 2025-02-28 12:38 | XMS_ITS | Clinical Summary ---
Author Organization [facility] [place] [address] Care Team Providers Care Capper Machine Operator Name Role Phone Unavailable Primary [...]
== END 2025-02-28 10:00 | disposition home or self-care (01) ==
LOC: HO.HMGCX 09:59
PROVIDERS: PCP Internal Medicine; Visit Provider Internal Medicine
DX: J45.909 Unspecified asthma, uncomplicated (principal)
CPT/HCPCS: 71046; 99212

== ENCOUNTER 2025-02-28 09:59 | Outpatient (AMB) | payer OTHER, SELFPAY ==
--- NOTE | 2025-02-28 10:48 | AM.OFFWIN_ITS ---
Intake Vital Signs 02/28/25 10:51 Weight 157 lb BP 110/68 Blood Pressure Location Rt brachial Position Sitting Pulse 76 Pulse Source Pulse Oximeter Temp 98.3 F Temp Source Oral Pulse Oximetry (%) 99 Oxygen Delivery Method Room Air Intake Visit Reasons: EP sinus infection for 2+ weeks Intake Note: Patient here for cough, headaches, slight congestion that has been present for about 10 days. Patient Tobacco Use Status: Never used Tobacco Public Health Nurse Required: Yes Public Health Nurse Language: Togolese Public Health Nurse Name: Jacky Benton- ID #[id number] Information Interpreted: non-clinical & clinical Accompanied by: Spouse Allergies No Known Allergies Allergy (Verified 02/28/25 10:54) Medication List - Last Reconciled 02/28/25 by Mode Giles MD No Known Home Meds Do you need a note to return to daycare/school/sports/work: Yes HPI EP sinus infection for 2+ weeks HPI Details History - The patient is a 45-year-old female pr esenting with persistent respiratory symptoms. - [facility], body [facility], and episodic fever. - Upon initial evaluation at this clinic last week, early pneumonia was suspected, but no imaging was conducted. - The patient subsequently visited an [facility] facility where allergic asthma was diagnosed instead of pneumonia. - She was prescribed medications at [facility] but reports no clear improvement in symptoms, prompting this follow-up visit. - Family history includes a sister who h ad a diagnosis suggestive of pneumonia one month ago and responded well to treatment. - The patient noted the cough is accompa nied by yellowish phlegm, indicating a possible infectious process rather than an allergic etiology. - There has been slight symptomatic impr ovement over the past 10 days, but persistent dry cough and sporadic phlegm production are noted. Problem List - Bronchitis - Possible Pneumonia - wheezing - Language barrier / economic specialist service was utilized Patient Instructions - Continue wearing a mask to prevent spr eading respiratory illness. - Expect improvement in symptoms over e next week; however, complete recovery may take longer if pneumonia is confirmed. - Monitor symptoms and return for reeval uation or follow up with the primary care provider in two weeks if symptoms persist. Review of Systems General: No fever no chills neurological: no dizziness ear nose throat: No sore throat no hearing difficulty no ear pain cardiovascular: No syncope, no chest pain, no palpitations gastrointestinal: No nausea vomiting or diarrhea endocrine: No polyuria polydipsia no heat intolerance genitourinary: No dysuria skin: No new complaints Physical Exam general: No acute distress HEENT: No acute findings neck: Supple respiratory system: Wheezing present, able to talk in full sentences, no stridor cardiovascular: S1-S2 RRR gastrointestinal: No pain extremities: No new findings DYE JIG OPERATOR: Alert awake oriented x3 motor sensory intact skin: Normal turgor PFSH Medical History Multinodular goiter (nontoxic) Vitamin D deficiency Postnasal drip Glaucoma Migraine Acid reflux Surgical History History of esophagogastroduodenoscopy (EGD) S/P thyroid biopsy Family History Father Digestive disorder Stomach cancer Mother No problems noted. 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 Housing: House Alcohol intake: never Patient Tobacco Use Status: Never used Tobacco e-Cigarette/Vaping Use: Never Used service: No Current occupational status: employed and other Cognitive needs: No Hearing needs: No Vision needs: No Female Reproductive History Menstrual Age of Menarche: 10 Physical Exam Vital Signs: Last Vital Signs Temp 98.3 F 02/28/25 10:51 Pulse 76 02/28/25 10:51 BP 110/68 02/28/25 10:51 Pulse Ox 99 02/28/25 10:51 Oxygen Delivery Method Room Air 02/28/25 10:51 Assessment & Plan Assessment & Plan (1) Acute asthmatic bronchitis: Code(s): J45.909 - Unspecified asthma, uncomplicated Plan History - The patient is a 45-year-old female presenting with persistent respiratory symptoms. - Approximately 10 days prior, the patient experienced significant cough, body pain, and episodic fever. - Upon initial evaluation at this clinic last week, early pneumonia was suspected, but no imaging was conducted. - The patient subsequently visited an [facility] facility where allergic asthma was diagnosed instead of pneumonia. - She was prescribed medications at Urgent Care but reports no clear improvement in symptoms, prompting this follow-up visit. - Family history includes a sister who had a diagnosis suggestive of pneumonia one month ago and responded well to treatment. - The patient noted the cough is accompanied by yellowish phlegm, indicating a possible infectious process rather than an allergic etiology. - There has been slight symptomatic improvement over the past 10 days, but persistent dry cough and sporadic phlegm production are noted. Problem List - Bronchitis - Possible Pneumonia - wheezing - Language barrier / economic specialist service was utilized Patient Instructions - Continue wearing a mask to prevent spreading respiratory illness. - Expect improvement in symptoms over the next week; however, complete recovery may take longer if pneumonia is confirmed. - Monitor symptoms and return for reevaluation or follow up with the primary care provider in two weeks if symptoms persist. Orders: Orders XR chest 2V Today J45.909 - Unspecified asthma, uncomplicated Medications: New levofloxacin 500 mg PO DAILY 10 days 10 tabs 0RF prednisone 20 mg PO DAILY 5 days 5 tabs 0RF Coding Level of Care Code Est Pt Level 4 (85552) Diagnoses Acute asthmatic bronchitis J45.909
[2025-02-28 10:51] VITALS: BP 110/68; PULSE 76; TEMP 36.8; O2SAT 99
--- OUTSIDE RECORDS SUMMARY | 2025-02-28 11:08 | XMS_ITS | Clinical Summary ---
Author Organization [facility] [place] [address] Care Team Providers Care Bevel Operator Name Role Phone Unavailable Primary Care [...]
== END 2025-02-28 11:29 | disposition home or self-care (01) ==
PROVIDERS: PCP Internal Medicine; Visit Provider Internal Medicine
DX: J45.909 Unspecified asthma, uncomplicated (principal)

== ENCOUNTER → 2025-02-28 11:27 | Outpatient (BNV) | payer OTHER, SELFPAY | PROVIDERS: PCP Internal Medicine; Visit Provider Radiology Diagnostic Radiology | DX: J45.909 Unspecified asthma, uncomplicated (principal) | CPT/HCPCS: 71046 ==

== ENCOUNTER 2025-06-26 15:43 | Outpatient (AMB) | payer OTHER, SELFPAY ==
--- NOTE | 2025-06-26 15:50 | A.OFFVIS_ITS ---
Vital Signs 06/26/25 15:51 Height 5 ft 6 in Weight 158 lb 11.725 oz BMI 25.6 BP 118/70 Blood Pressure Location Rt brachial Position Sitting Pulse 68 Pulse Source Pulse Oximeter Pulse Oximetry (%) 99 Oxygen Delivery Method Room Air Intake Visit Reasons: Abd pain Intake Note: Est pt for mgmt of GERD w/ abd pain. Chief Complaint; C.O. nausea, GERD, and LLQ pain intermittently. Pt also here to follow up on scheduling colonoscopy. Irrigating Pump Operator Required: Yes Irrigating Pump Operator Services: Irrigating Pump Operator Present Irrigating Pump Operator Name: Carey [id number] (prov. only) Information Interpreted: clinical only Accompanied by: Spouse Allergies No Known Allergies Allergy (Verified 06/26/25 16:00) HPI HPI Abd pain: Details: LAST VISIT FHx: colon cancer Screen for colon cancer Plan Patient denies any GI, cardiac or respiratory symptoms. Occasional acid reflux, patient is not taking any PPIs.? Denies any issues with anesthesia in the past.? Denies any history of sleep apnea.? No history infectious diseases in the past or present.? Not on any anticoagulation therapy.? Patient's father was diagnosed with colon cancer at age 59.? Patient denies melena, hematochezia, unintentional weight loss or ribbon like stools.? Discussed at length the pre-procedure,? prep, diet & medications as well as what to expect prior, during and after the procedure.?? Stressed the importance of good bowel prep.? Recommended the use of Vaseline or Calmoseptine OTC & baby wipes with bowel movements to promote comfo rt.? ?Patient verbalizes understanding and agrees to plan of care.? She was given the opportunity to ask questions and all questions answered.? We will see her after the procedure.? New bisacodyl (Dulcolax (bisacodyl)) take 4 tabs at noon the day before your colonoscopy 20 mg (4 x 5 mg) PO ONCE 1 day 4 tabs 0RF Z12.11 polyethylene glycol 3350 (Miralax) As directed by gastroenterology department at [facility] 238 grams PO ONCE 238 grams 0RF Z12.11 TODAY'S VISIT: Patient is here today for requested visit. Patient reports left lower quadrant pain more frequent now. She does admit that she is not moving her bowels daily and does not feel like she empties them completely. Colonoscopy was not scheduled yet. Patient does have a family history of CRC. Never had colonoscopy in the past. No changes since last visit set otherwise. Will send a message to surgical schedulers to schedule procedure with patient. Patient does report occasional blood after bowel movements when straining. Denies any weight loss, ribbon like stools denies melena. [facility] Medical History Multinodular goiter (nontoxic) Vitamin D deficiency Postnasal drip Glaucoma Migraine Acid reflux Surgical History History of esophagogastroduodenoscopy (EGD) S/P thyroid biopsy Family History Father Digestive disorder Stomach cancer Mother No problems noted. 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 Housing: House Alcohol intake: never Patient Tobacco Use Status: Never used Tobacco e-Cigarette/Vaping Use: Never Used service: No Current occupational status: employed and other Cognitive needs: No Hearing needs: No Vision needs: No Female Reproductive History Menstrual Age of Menarche: 10 Review of Systems Const Denies weight gain and Denies weight loss ENT Reports no additional complaints, Denies dysphagia and Denies odynophagia Card Reports no additional complaints Resp Reports no additional complaints GI Denies abdominal pain, Denies belching, Denies melena, Denies bloating, Denies change in bowel habits, Denies dysphagia, Denies excessive flatus, Denies dyspepsia, Reports heartburn (Occasional), Denies diarrhea, Denies loose stools, Denies nausea, Denies odynophagia and Denies vomiting Reports no additional complaints Musc Reports no additional complaints Neuro Reports no additional complaints Psych Reports no additional complaints Endo Reports no additional complaints Physical Exam Vital Signs: Last Vital Signs Pulse 68 06/26/25 15:51 BP 118/70 06/26/25 15:51 Pulse Ox 99 06/26/25 15:51 Oxygen Delivery Method Room Air 06/26/25 15:51 BMI result Body Mass Index 25.6 Const General: healthy appearing and no acute distress Nutritional Appearance: obese Orientation/consciousness: patient oriented x3 Resp Effort & Inspection: normal respiratory effort, able to speak in complete sentences, no tracheal deviation and symmetric chest movement Auscultation: clear to auscultation bilaterally Cardio Rate: regular rate GI Inspection: Yes normal to inspection, No distended and Yes obesity Palpation (GI): Soft to palpation, not firm, nontender and No hepatosplenomegaly present Auscultation: normal bowel sounds General: Yes no CVA tenderness Back/Spine/Pelvis Back: no CVA tenderness Skin General skin exam: elasticity normal, turgor normal and dry skin Neuro General: patient oriented x3 Psych Appearance: grossly normal Mental Status: mental status grossly normal Assessment & Plan Assessment & Plan (1) Acid reflux: Comment: EGD 12/2020 negative, Barium swallow nl 01/2021 Code(s): K21.9 - Gastro-esophageal reflux disease without esophagitis Category: Medical Qualifiers: Esophagitis presence: esophagitis presence not specified Qualified Code(s): K21.9 - Gastro-esophageal reflux disease without esophagitis (2) Screen for colon cancer: Code(s): Z12.11 - Encounter for screening for malignant neoplasm of colon (3) LLQ abdominal pain: Code(s): R10.32 - Left lower quadrant pain Plan Patient has a history of H pylori in the past. Currently she is not taking any PPI. Occasional acid reflux depending on what she eats. Patient can be sent for upper endoscopy to rule out gastritis, H pylori, duodenitis, esophagitis. Patient will be sent for colonoscopy. What to expect before during and after procedure discussed with patient. Stressed the importance of good bowel prep and clear liquid diet day before procedure. Patient will start taking Dulcolax few days before procedure to make sure that she has good prep. Patient was encouraged to increase fluid intake and activity to promote better bowel motility. I will see patient after the procedure, sooner on as needed basis. He is agreeable to this plan and verbalizes understanding of instructions. She was given the opportunity to ask questions and all questions answered. Thank you for allowing me to participate in her care Medications: New bisacodyl (Dulcolax (bisacodyl)) Start taking 2 tablet every night 7 days before the procedure and 1 day before procedure take 4 tablets at noon time followed by MiraLax prep 10 mg (2 x 5 mg) PO BEDTIME 16 tabs 0RF Z12.11 - Encounter for screening for malignant neoplasm of colon docusate sodium 100 mg PO BEDTIME 90 caps 3RF K59.00 - Constipation, unspecified Coding Level of Care Code Est Pt Level 4 (99720) Complex EM visit Add On G2211 Diagnoses Gastroesophageal reflux disease, unspecified whether esophagitis present K21.9 Esophagitis presence: esophagitis presence not specified Screen for colon cancer Z12.11 LLQ abdominal pain R10.32 Time Spent (min) 35 Comment 25 minutes spent with patient and additional 10 minutes spent reviewing her records
[2025-06-26 15:51] VITALS: BP 118/70; PULSE 68; O2SAT 99; BMI 25.6
--- OUTSIDE RECORDS SUMMARY | 2025-06-26 21:04 | XMS_ITS | Clinical Summary ---
Author Organization [facility] [place] [address] Care Team Providers Care Parquetry Layer Name Role Phone Unavailable Primary Care Provider [...] Smear 1999 Colorectal Cancer Screening: Colonoscopy 09/13/2022 HIV Screening 09/13/2022 Hepatitis C Screening 09/13/2022 Social Influencers of Health Screening 09/13/2022 Depression Screening 10/12/2024 COVID-19 Vaccine (2023-2 5 season) 2025 Influenza Vaccine (#1) 2025 HIB Vaccines Aged Out No longer [...] 5 Years) and At-Risk Patients (6 to 49 Years) Aged Out No longer eligible b ased on patient's age to complete this topic RSV Immunization Patients Un emigdio 20 months Aged Out No longer eligible b ased on patient's age to complete this topic Varicella Vaccines Aged Out No longer eligible based on patient's age to complete this topic
== END 2025-06-26 16:49 | disposition home or self-care (01) ==
PROVIDERS: PCP Internal Medicine; Visit Provider Nurse Practitioner Family
DX: Z01.818 Encounter for other preprocedural examination (principal); Z12.11 Encounter for screening for malignant neoplasm of colon; K21.9 Gastro-esophageal reflux disease without esophagitis; R10.32 Left lower quadrant pain
CPT/HCPCS: 99214

== ENCOUNTER → 2025-06-26 15:43 | Outpatient (BNVA) | payer OTHER, SELFPAY | PROVIDERS: PCP Internal Medicine; Visit Provider Nurse Practitioner Family | DX: Z01.818 Encounter for other preprocedural examination (principal); K21.9 Gastro-esophageal reflux disease without esophagitis; R10.32 Left lower quadrant pain | CPT/HCPCS: 99212 ==

== ENCOUNTER 2025-07-04 10:56 | Day surgery (SDC) | payer OTHER, SELFPAY ==
--- OUTSIDE RECORDS SUMMARY | 2025-06-27 17:24 | XMS_ITS | Clinical Summary ---
Author Organization [facility] [place] [address] Care Team Providers Care Stapler Machine Name Role Phone Unavailable Primary Care Provider [...]
--- NOTE | 2025-07-03 09:40 | HO.ANESPROP2 ---
Documented by User: Nettie Hoyt NP 07/03/25 09:40 HPI - Anesthesia Eval Consult details Narrative: 45yo F for Colonoscopy PMFSH Active Problems Active Problems: All Active Problems Acute asthmatic bronchitis (Acute) Acute cough (Acute) Multinodular goiter (nontoxic) (Acute) Acute upper respiratory infection (Acute) FHx: colon cancer (Acute) History of renal calculi (Acute) Migraine with aura and without status migrainosus (Acute) Anxiety (Acute) Thyroid nodule (Acute) Cervical cancer screening (Acute) Well woman exam with routine gynecological exam (Acute) Presence of 52 mg levonorgestrel-releasing intrauterine device (IUD) (Acute) Annual physical exam (Acute) Allergic rhinitis (Acute) H. pylori infection (Acute) Cervical radiculopathy (Acute) Vitamin D deficiency (Acute) Postnasal drip (Acute) Glaucoma (Acute) Migraine (Acute) Acid reflux (Acute) Past Medical History Medical History Asthma Multinodular goiter (nontoxic) Vitamin D deficiency Postnasal drip Glaucoma Migraine Acid reflux Family History Family History Father Digestive disorder Stomach cancer Mother No problems noted. 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Recorded ?Confirmed ?Last Taken ?Type albuterol sulfate 90 mcg/actuation 1 puff inhalation Q4H cough 07/04/25 07/04/25 Unknown History aerosol inhaler (Ventolin HFA) Assessment and Plan Assessment Anesthesia Assessment: Chart Reviewed Documented by User: Lazaro Espinal MD 07/04/25 12:30 [facility] Past Medical History Medical History Asthma Multinodular goiter (nontoxic) Vitamin D deficiency Postnasal drip Glaucoma Migraine Acid reflux Family History Family History Father Digestive disorder Stomach cancer Mother No problems noted. 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Recorded ?Confirmed ?Last Taken ?Type albuterol sulfate 90 mcg/actuation 1 puff inhalation Q4H cough 07/04/25 07/04/25 Unknown History aerosol inhaler (Ventolin HFA) Exam Airway Mallampati Class: II TM Dist: >3cm Neck ROM: Full Assessment and Plan Assessment Anesthesia Assessment: Anesthesia Plan Discussed Final Anesthetic Review Family History of Problems with Anesthesia: No History of Problems with Anesthesia: No NPO: Yes ASA Class: II Final Preanesthetic Review: No Changes in Pt Med Stat, Meds/Allgs Chart Reviewed, Consent Obtained/Reviewed and Anes Risks/Benef Reviewed Patient Risk: Low Procedure Risk: Low Anesthetic Plan Anesthetic Plan: MAC: Disposition: Standard PACU
--- NOTE | 2025-07-04 12:01 | MHC.SHP ---
Pre-Procedural Eval Section A - 24 Hr Update-Section A only Date of Service: 07/04/25 The patient is an INPATIENT: No The patient has been examined within 24 hours of the surgical procedure. The History & Physical has been completed within 30 days and I have reviewed it.: Yes Section B - Complete if H&P > 30 days Chief Complaint: Left lower quadrant pain Allergies: Allergies Allergy/AdvReac Type Severity Reaction Status Date / Time No Known Allergies Allergy Verified 06/26/25 16:00 Plan Diagnosis/Plan: Unchanged I have reviewed the history and physical and performed a pertinent physical examination on my patient. No changes have occurred unless specified. Time Spent With Patient Time: Total time managing care of this patient today ____ minutes.
[2025-07-04 12:12] VITALS: BMI 27.3
[2025-07-04 12:27] VITALS: BP 106/67; PULSE 67; RESP 15; TEMP 36.6; O2SAT 99
[2025-07-04 12:27] LABS: UPreg QC Valid YES
[2025-07-04] MEDS: Lactated Ringers 1,000 ML 100 ML IVCONT (12:28)
--- NOTE | 2025-07-04 13:13 | P.OPN-COLO_ITS ---
Colonoscopy Operative Note Operative Note Date of Service: 07/04/25 Narrative: Procedure: Colonoscopy Indication: Family history of colon cancer Endoscopist: Jossie Del Valle MD Anesthesia Provider: Michael Casey CRNA Anesthesia type: MAC Instrument: Olympus [id number]-[id number] Consent: Indication, risks vs benefits, and alternatives were discussed with the patient who gave written informed consent to proceed. An certified medical asst was utilized to assist with the consent. EKG, pulse, pulse oximetry and blood pressure were monitored throughout the procedure. Please see anesthesia flowsheet. Procedure: The patient was brought to the procedure room and placed in the left lateral decubitus position. IV medications were administered by the anesthesia provider in attendance. A digital rectal exam was performed which was normal. A distal attachment cap was affixed to the tip of the colonoscope which was then inserted through the anus and advanced through the colon to the cecum at 75 cm,and terminal ileum. Appendiceal orifice and ileocecal valve were identified. Mucosa was carefully examined under high definition white light as the instrument was slowly withdrawn in a retrograde panoramic fashion. Retroflexion was performed in rectum. The procedure was not difficult. There were no immediate obvious complications. The quality of the prep was BBPS: 2+3+3 = adequate Withdrawal time 12 minutes. Limitations: No limitations. Findings: Mucosa: Loss of normal vacular pattern in right side of the colon suspicious for underlying microscopic colitis. Remaining mucosa was normal including in terminal ileum. Cold forceps biopsies were taken from right and left colon and sent for histology. Protruding lesions: * 1 sessile polyp of size 3 mm in sigmoid colon. Cold forceps polypectomy was performed. The polyp was completely removed and retrieved. * Large internal hemorrhoids without stigmata of recent bleeding. Impression: 1. Abnormal colon mucosa (biopsy) 2. Total of 1 polyp removed 3. Internal hemorrhoids Recommendations: - Follow path results. - Repeat colonoscopy in 5 years due to family history.
[2025-07-04 13:16] VITALS: BP 101/54; PULSE 75; RESP 16; TEMP 36.2; O2SAT 99
[2025-07-04 13:29] VITALS: BP 112/72; PULSE 70; RESP 16; TEMP 36.1; O2SAT 100
== END 2025-07-04 14:09 | disposition home or self-care (01) ==
PROVIDERS: Nurse Practitioner; PCP Internal Medicine; Visit Provider Internal Medicine
PROC: 0DJD8ZZ Inspection of Lower Intestinal Tract, Via Natural or Artificial Opening Endoscopic (ICD-10-PCS; CPT 45378; principal; 2025-07-04 12:30)
DX: Z12.11 Encounter for screening for malignant neoplasm of colon (principal); Z80.0 Family history of malignant neoplasm of digestive organs; R10.32 Left lower quadrant pain; R11.0 Nausea; D12.5 Benign neoplasm of sigmoid colon; K64.8 Other hemorrhoids; K21.9 Gastro-esophageal reflux disease without esophagitis; E55.9 Vitamin D deficiency, unspecified; E04.2 Nontoxic multinodular goiter; R09.82 Postnasal drip; G43.909 Migraine, unspecified, not intractable, without status migrainosus; H40.9 Unspecified glaucoma
CPT/HCPCS: 45380; 81025; 88305; J2704

== ENCOUNTER → 2025-07-04 10:56 | Outpatient (BNV) | payer OTHER, SELFPAY | PROVIDERS: PCP Internal Medicine; Visit Provider Internal Medicine | DX: Z12.11 Encounter for screening for malignant neoplasm of colon (principal); K63.5 Polyp of colon; K64.8 Other hemorrhoids; Z80.0 Family history of malignant neoplasm of digestive organs | CPT/HCPCS: 45380 ==

== ENCOUNTER 2025-08-14 12:10 | Outpatient (AMB) | payer OTHER, SELFPAY ==
[2025-08-14 12:14] VITALS: BP 112/70; PULSE 66; RESP 14; TEMP 36.7; O2SAT 99; BMI 28.1
--- NOTE | 2025-08-14 12:14 | MHC.PC.OV ---
Vital Signs 08/14/25 12:14 Height 5 ft 4 in Weight 164 lb BMI 28.1 BP 112/70 Blood Pressure Location Lt brachial Position Sitting Respiration 14 Pulse 66 Temp 98.0 F Temp Source Oral Pulse Oximetry (%) 99 Oxygen Delivery Method Room Air Intake Visit Reasons: Annual PE Casino Shift Manager Required: No Accompanied by: Self / Same As Patient Allergies No Known Allergies Allergy (Verified 07/04/25 12:12) Medication List - Last Reconciled 08/14/25 by Katie Keenan MD No Known Home Meds Tobacco use date assessed: 08/14/25 Dental Screening Dental Screen Date: 08/14/25 Did you have a dental visit in the last 12 months?: Yes Did you have a dental problem in the last 6 months where you did not have access to dental care?: No Was dental information given to patient?: Patient has dentist HPI Annual PE HPI Details Pt presents for PE. Pt c/o feeling tired, low energy, insomnia and hot flashes for 1 year. Pt feels overwhelmed taking care of her family and sick mother with colon ca traveling to [place], Pt denies depression, SI. PFSH Medical History (Updated 08/14/25 @ 12:57 by Katie Keenan MD) Asthma Multinodular goiter (nontoxic) Vitamin D deficiency Postnasal drip Glaucoma Migraine Acid reflux Surgical History (Updated 08/14/25 @ 13:02 by Katie Keenan MD) Hx of colonoscopy History of esophagogastroduodenoscopy (EGD) S/P thyroid biopsy Family History Father Digestive disorder Stomach cancer Mother No problems noted. 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 1. Little interest or pleasure in doing things: not at all 2. Feeling down, depressed, or hopeless: not at all 3. Trouble falling or staying asleep, or sleeping too much: not at all 4. Feeling tired or having little energy: not at all 5. Poor appetite or overeating: not at all 6. Feeling bad about yourself - or that you are a failure or have let yourself or your family down: not at all 7. Trouble concentrating on things, such as reading the newspaper or watching television: not at all 8. Moving or speaking so slowly that other people could have noticed. Or the opposite - being so fidgety or restless that you have been moving around a lot more than usual: not at all 9. Thoughts that you would be better off or of hurting yourself in some way: not at all Total score: 0 Depression Screening Interpretation: Negative Depression Screening Done: Yes 61983 - PHQ-9 Billing: Yes Source: Developed by Drs. Sravan Quispe, Shannan Phan, Vinayak Chen and colleagues, with an educational lavelle from [employer]. Thrive Questionnaire Date Thrive assessed: 06/01/24 I am a: Patient What is your living situation today?: I have a steady place to live Within the past 12 months, did the food you bought not last and you didn't have the money to get more?: Never true Within the past 12 months, did you worry whether your food would run out before you got money to buy more?: Never true Do you have trouble paying for medicines?: No Do you have trouble getting transportation to medical appointments?: No Do you have trouble paying your heating and electricity bill?: No Do you have trouble taking care of your child, family member or friend?: No Do you have trouble with day-to-day activities such as bathing, preparing meals, shopping, managing finances, etc.?: No Are you currently unemployed and looking for a job?: No Are you interested in more education?: No Please select the resources that you would like help with: None Currently or been in a relationship where the following occur: No concerns reported THRIVE Score: 0 MARIA LUISA-7 AMB Questionnaire MARIA LUISA-7 Date MARIA LUISA - 7 assessed: 08/14/25 Feeling nervous, anxious, or on edge: 0 = Not at all Not being able to stop or control worryin = Not at all Worrying too much about different things: 0 = Not at all Trouble relaxin = Not at all Being so restless that it is hard to sit still: 0 = Not at all Becoming easily annoyed or irritable: 0 = Not at all Feeling afraid as if something awful might happen: 0 = Not at all Total MARIA LUISA-7 score (0-4 normal; 5-9 mild; 10-14 moderate; 15-21 severe): 0 Source: Developed by Drs. Sravan Quispe, Shannan Phan, Vinayak Chen and colleagues, with an educational lavelle from [employer]. MARIA LUISA-7 Assessment Billing MARIA LUISA-7 Assessment Tool: MARIA LUISA-7 Assessment 35913 Review of Systems Const All systems reviewed & are unremarkable except as noted in HPI and below Eyes Reports no additional complaints ENT Reports no additional complaints Card Reports no additional complaints Resp Reports no additional complaints GI Reports no additional complaints Reports no additional complaints Physical exam (Primary Care) Vital Signs: Last Vital Signs Temp 98.0 F 08/14/25 12:14 Pulse 66 08/14/25 12:14 Resp 14 08/14/25 12:14 BP 112/70 08/14/25 12:14 Pulse Ox 99 08/14/25 12:14 Oxygen Delivery Method Room Air 08/14/25 12:14 BMI result Body Mass Index 28.1 Tobacco/Smoking Status: Tobacco use Status Tobacco use date assessed 08/14/25 08/14/25 12:20 Patient Tobacco Use Status Never used Tobacco 08/14/25 12:20 e-Cigarette/Vaping Use Never Used 08/14/25 12:20 PHQ-9: PHQ-9 Score PHQ-9: Total score 0 08/14/25 12:46 Depression Screening Interpretation: Negative Thrive Assessment: Date of Thrive Assessment Date Thrive assessed 06/01/24 08/14/25 12:20 Currently or been in a relationship where the following occur: No concerns reported Const General: no acute distress HENMT Head: Yes normal to inspection Ears: hearing grossly normal bilaterally Face and sinus: Yes normal facial exam Mouth: Normal oral and palatal mucosa present Throat: Yes posterior oropharynx normal Eyes General: appearance normal, both eyes and all related structures Neck Neck: Yes no lymphadenopathy and Yes supple Resp Effort & Inspection: normal respiratory effort Auscultation: clear to auscultation bilaterally Cardio Rhythm: regular rhythm Heart sounds: S1 normal heart sound present and S2 normal heart sound present GI Inspection: Yes normal to inspection Palpation (GI): Soft to palpation Percussion: Yes normal to percussion Auscultation: normal bowel sounds Coding Level of Care Code Est Pt Prev Care 40-64y(72975) Diagnoses Annual physical exam Z00. Fatigue R53.83 Additional Codes MARIA LUISA-7 Assessment Billing - MARIA LUISA-7 Assessment Tool: MARIA LUISA-7 Assessment 59421 ([id number]) PHQ-9 - 64912 - PHQ-9 Billing: Yes ([id number]) Assessment & Plan Assessment & Plan (1) Annual physical exam: Code(s): Z00. - Encounter for general adult medical examination without abnormal findings Category: Medical Plan: well balanced diet, regular exercise, discussed. pt is up to date with cafeteria assistant, mammogram will be scheduled and Cologuard (2) Fatigue: Code(s): R53.83 - Other fatigue Category: Medical Plan: for perimenopausal symptoms pt will try OTC Estoven, check labs,stress management discussed Orders: Orders Comprehensive [employer] Panel Fast Today Z00.00 - Encounter for general adult medical examination without abnormal findings Lipid Panel Today Z00.00 - Encounter for general adult medical examination without abnormal findings Vitamin D 25-OH Total Today Z00.00 - Encounter for general adult medical examination without abnormal findings Vitamin B12 and Folate Today Z00.00 - Encounter for general adult medical examination without abnormal findings UA w Microscopic Today Z00.00 - Encounter for general adult medical examination without abnormal findings IRON PROFILE Today R53.83 - Other fatigue MM tomosynthesis screening BI Today Z12.31 - Encounter for screening mammogram for malignant neoplasm of breast Complete Blood Count Auto Diff Today Z00.00 - Encounter for general adult medical examination without abnormal findings TSH reflex Free T4 Today Z00.00 - Encounter for general adult medical examination without abnormal findings Referrals [employer]ER[employer] L[employer] FIXTURE ASSEMBLER Referral Z97.5 - Presence of (intrauterine) contraceptive device
--- OUTSIDE RECORDS SUMMARY | 2025-08-14 15:24 | XMS_ITS | Clinical Summary ---
Author Organization [facility] [place] [address] Care Team Providers Care Customer Retention Representative Name Role Phone Unavailable Primary Care Provider [...] Last Done Comments Breast Cancer Screening 1978 Colorectal Cancer Screening: Colonoscopy 1978 DTaP,Tdap,and Td Vaccines (1 - Tdap) 1997 Hepatitis B Vaccines (1 of 3 - 19+ 3-dose series) 1997 Cervical Cancer Screening: P ap Smear 1999 HIV Screening 09/13/2022 Hepatitis C Screening 09/13/2022 Social Influencers of Health Screening 09/13/2022 Depression Screening 10/12/2024 COVID-19 Vaccine ( - 2023-2 5 season) 2025 Influenza Vaccine (#1) 2025 RSV Immunization Adult Patie nts (1 - 1-dose 75+ series) 2053 HIB Vaccines Aged Out No longer eligi [...]
== END 2025-08-14 13:32 | disposition home or self-care (01) ==
LOC: HO.HMCC 12:11
PROVIDERS: Visit Provider Internal Medicine
DX: Z00.00 Encounter for general adult medical examination without abnormal findings (principal); R53.83 Other fatigue

== ENCOUNTER → 2025-08-14 12:10 | Outpatient (BNVA) | payer OTHER, SELFPAY | PROVIDERS: Visit Provider Internal Medicine | DX: Z00.00 Encounter for general adult medical examination without abnormal findings (principal); R53.83 Other fatigue; R23.2 Flushing; Z97.5 Presence of (intrauterine) contraceptive device | CPT/HCPCS: 96127; 99396 ==

== ENCOUNTER 2025-08-21 10:18 | Outpatient (REF) | payer OTHER, SELFPAY ==
--- OUTSIDE RECORDS SUMMARY | 2025-08-21 12:05 | XMS_ITS | Clinical Summary ---
Author Organization [facility] [place] [address] Care Team Providers Care Repairing Calibrator Name Role Phone Unavailable Primary Care Provider [...]
[2025-08-21 13:21] LABS: MANUAL DIFF FLAG NO
[2025-08-21 13:30] LABS: Hematocrit 42.1 % (37.0-47.0); Hemoglobin 13.8 g/dl (12.0-16.0); Imm Gran Abs Auto 0.02 X10*3/uL (0.00-0.03); Imm Gran Pct Auto 0.4 % (0.0-0.4); Lymphocytes Absolute Auto 1.6 X10*3/uL (1.2-4.9); Mean Corpuscular HGB Conc 32.8 g/dl (31.0-35.0); Mean Corpuscular Hemoglobin 30.6 pg (27.0-33.0); Mean Corpuscular Volume 93.3 fL (80.0-98.0); NRBC Abs Auto 0.000 X10*3/uL (0.0-0.012); NRBC Pct Auto 0.0 /100WBC (0.0-0.2); Platelet Count 205 X10*3/uL (160-400); Red Blood Count 4.51 X10*6/uL (4.20-5.50); White Blood Count 5.6 X10*3/uL (4.8-10.8)
[2025-08-21 14:00] LABS: Appearance Urine Clear; Glucose Urine UA Negative (Negative); PH 6.0 (5.0-9.0); Specific Gravity - Urine 1.010 (1.005-1.025); UMIC TRIGGER UA YES
[2025-08-21 14:37] LABS: Alanine Aminotransferase 11 U/L (0-31); Albumin Level 4.3 g/dL (3.5-5.0); Alkaline Phosphatase 57 U/L (39-117); Anion Gap 9 (12-20); Aspartate Amino Transferase 21 U/L (5-31); Blood Urea Nitrogen 11 mg/dL (9-16); Calcium 8.9 mg/dL (8.4-10.2); Carbon Dioxide 21 mmol/L (22-29); Chloride 111 mmol/L (96-108); Cholesterol 217 mg/dL (<200); Estimated Glomerular Filt Rate > 60; Folate 11.0 ng/mL (> or = 4.0); HDL Cholesterol 61 mg/dL (>40); Iron 100 mcg/dL (30-160); Percent Iron Saturation 34 % (15-50); Potassium 4.2 mmol/L (3.3-5.1); Sodium 137 mmol/L (135-145); Total Iron Binding Capacity 296 mcg/dL (228-428); Total Protein 6.9 g/dL (6.5-8.0); Triglycerides 84 mg/dL (<150); Unsaturated Iron Binding 196 ug/dL; Vitamin B12 355 pg/mL (200-900)
== END 2025-08-21 10:19 | disposition home or self-care (01) ==
LOC: HO.HMGCLDS 10:18
PROVIDERS: PCP Internal Medicine; Visit Provider Internal Medicine
DX: Z00.00 Encounter for general adult medical examination without abnormal findings (principal); R53.83 Other fatigue
CPT/HCPCS: 36415; 80053; 80061; 81001; 82306; 82607; 82746; 83540; 84443; 85025

== ENCOUNTER 2025-08-23 11:17 | Outpatient (REF) | payer OTHER, SELFPAY ==
--- OUTSIDE RECORDS SUMMARY | 2025-08-23 14:00 | XMS_ITS | Clinical Summary ---
Author Organization [facility] [place] [address] Care Team Providers Care Harp Repairer Name Role Phone Unavailable Primary Care Provider [...] Screening 09/13/2022 Depression Screening 10/12/2024 COVID-19 Vaccine (1 - 2024-2 6 season) 2025 Influenza Vaccine (#1) 2025 RSV [...]
== END 2025-08-23 11:18 | disposition home or self-care (01) ==
LOC: HO.MAMMO 11:17
PROVIDERS: PCP Internal Medicine; Visit Provider Internal Medicine
DX: Z12.31 Encounter for screening mammogram for malignant neoplasm of breast (principal)
CPT/HCPCS: 77063; 77067

== ENCOUNTER → 2025-08-23 11:30 | Outpatient (BNV) | payer OTHER, SELFPAY | PROVIDERS: PCP Internal Medicine; Visit Provider Radiology Body Imaging | DX: Z12.31 Encounter for screening mammogram for malignant neoplasm of breast (principal) | CPT/HCPCS: 77063; 77067 ==